=== PATIENT | male | born 1955 | race Two or more races ===

== ENCOUNTER 2022-04-14 19:06 | Inpatient (IN) | payer MEDICAID ==
[~2022-04-14] VITALS: Ht 157.5 cm; Wt 81.6 kg
[2022-04-14] MEDS ORDERED: MECLIZINE HCL 25 MG TABLET PO ONE (19:30)
[2022-04-14] MEDS ORDERED: IV NS 0.9% 1,000 ML BAG IV ONE ×2 (19:30→20:00)
[2022-04-14] MEDS ORDERED: ONDANSETRON HCL/PF 4 MG/2 ML VIAL IVP ONE (19:30)
--- NOTE | 2022-04-14 19:30 | NUR ---
BIB FAMILY C/O NAUSEA AND VOMITING XDAYS, DIZZINESS, DRY MOUTH, AND PAIN BILATERAL HAND, WITH HI BP AND HEART RATE. KNOWN HX OF HTN. PATIENT IS AAOX4, ITALIAN SPEAKING, FEBRILE. PLACED COMFORTABLY IN BED. VITALS CHECKED.
[2022-04-14] MEDS ORDERED: ONDANSETRON HCL/PF 4 MG/2 ML VIAL ONE (19:42)
[2022-04-14] MEDS ORDERED: MECLIZINE HCL 25 MG TABLET ONE (19:42)
--- NOTE | 2022-04-14 19:55 | NUR ---
BROUGHT TO CT DEPT
--- NOTE | 2022-04-14 19:57 | NUR ---
COVID SWAB, INFLUENZA SWAB AND SWAB FOR RSV DONE AND SENT TO LAB
--- NOTE | 2022-04-14 19:57 | NUR ---
IV CANNULA RIGHT AC G18. BLOOD DRAWN AND SENT TO LAB
[2022-04-14] MEDS ORDERED: ACETAMINOPHEN ES 500 MG TABLET PO ONE (20:00)
--- NOTE | 2022-04-14 20:00 | NUR ---
1L NS AND TYLENOL ES 1000MG PO HAS A DUPLICATE ORDER.
[2022-04-14 20:04] LABS: BASOPHILS % (AUTO) 0.3 % (0.0-2.0); HEMATOCRIT 45 % (39-51); HEMOGLOBIN 15.3 g/dL (13.5-17.5); LYMPHOCYTES % (AUTO) 6.1 % (20.0-44.0); MEAN CORPUSCULAR HGB CONC 34 g/dl (31.0-36.0); MEAN CORPUSCULAR VOLUME 101 fL (80-96); MONOCYTES # (AUTO) 0.6 K/uL (0.1-1.30); MONOCYTES % (AUTO) 3.6 % (2.0-12.0); NEUTROPHILS # (AUTO) 14.5 K/uL (1.8-8.9); PLATELET COUNT (AUTO) 197 K/uL (150-450); RED BLOOD CELL COUNT(AUTO) 4.39 MIL/uL (4.5-6.0); WHITE BLOOD COUNT (AUTO) 16.1 K/uL (4.3-11.0)
[2022-04-14 20:16] LABS: CALCIUM, SERUM 8.9 mg/dL (8.5-10.1); CARBON DIOXIDE 25 mmol/L (21-32); CHLORIDE 93 mmol/L (98-107); CREATININE 1.6 mg/dL (0.6-1.3); GLUCOSE 279 mg/dL (74-106); SODIUM SERUM 129 mmol/L (136-145); UREA NITROGEN, BLOOD 18 mg/dL (7-18)
[2022-04-14 20:22] LABS: ALANINE AMINOTRANSFERASE 74 U/L (12-78); ALBUMIN 3.3 g/dL (3.4-5.0); ALKALINE PHOSPHATASE 171 U/L (46-116); ASPARTATE AMINOTRANSFERASE 80 U/L (15-37); BILIRUBIN,DIRECT 1.2 mg/dL (0.0-0.2); BILIRUBIN,TOTAL 2.5 mg/dL (0.2-1.0); TOTAL PROTEIN, SERUM 8.5 g/dL (6.4-8.2)
--- NOTE | 2022-04-14 21:37 | NUR ---
[facility] PAGED
--- NOTE | 2022-04-14 21:42 | NUR ---
[place] glass in [facility] - 04/14/22 at 2146 by GOOD TRANSFERRED PT TO ROOM VIA ACLS.
--- NOTE | 2022-04-14 22:17 | NUR ---
PATIENT WENT OUT OF BED. HE IS A BIT WOBBLY. ASSISTED BACK TO ROOM AND BED.
--- NOTE | 2022-04-14 22:20 | NUR ---
EZIO [phone]. EMERGENCY CONTACT.
[2022-04-14] MEDS: POTASSIUM CL. PREMIX PERIPHER. 50 ML IV SCH ×2 (22:49→23:50)
--- NOTE | 2022-04-14 22:49 | NUR ---
1ST BAG OF KCL 10MEQ/BAG STARTED
--- NOTE | 2022-04-14 23:20 | NUR ---
PATIENT IS AGITATED. TRYING TO GET OUT OF BED. HE WAS COMPLAINING OF PAIN ON HIS IV SITE
[2022-04-14] MEDS ORDERED: POTASSIUM CL. PREMIX PERIPHER. 50 ML ONE (23:51)
--- NOTE | 2022-04-14 23:59 | NUR ---
2/4 KCL 10MG/ 50ML RUNNING LAC 18G
[2022-04-15] VITALS (39 sets, daily range): BP systolic 58–216; BP diastolic 35–109
[2022-04-15] MEDS ORDERED: ONDANSETRON HCL/PF 4 MG/2 ML VIAL IVP PRN (00:30)
--- NOTE | 2022-04-15 00:34 | NUR ---
REPORT GIVEN TO VALE BOBBY
--- NOTE | 2022-04-15 00:47 | NUR ---
URINE SPECIMEN SENT TO LAB
[2022-04-15] MEDS ORDERED: POTASSIUM CL. PREMIX PERIPHER. 50 ML ONE (01:01)
[2022-04-15] MEDS: POTASSIUM CL. PREMIX PERIPHER. 50 ML IV SCH ×14 (01:03→19:46)
--- NOTE | 2022-04-15 01:04 | NUR ---
3RD BAG OF KCL STARTED
--- NOTE | 2022-04-15 01:20 | NUR ---
TRANSFERRED TO ROOM
[2022-04-15 01:35] LABS: BILIRUBIN,URINE SMALL (NEGATIVE); COLOR,URINE YELLOW (YELLOW); LEUKOCYTE ESTERASE ,URINE NEGATIVE (NEGATIVE); NITRITE, URINE NEGATIVE (NEGATIVE); PH,URINE 6.5 (5.0-8.0); PROTEIN,URINE 30 mg/dl (NEGATIVE); UGLUCOSE 250 MG/DL mg/dL (NEGATIVE)
--- NOTE | 2022-04-15 01:40 | NUR ---
PATIENT MR. SONG FERGUSON BROUGHT FROM ER ON A GUEREY FROM THE ER DEPT CONFUSED RESTLESS TOSSING BACK AND FORTH ON THE BED NOTED QUARTER SIZE ABRASION LEFT KNEE AND A APPROX 3 INCH ABRASION SIDE LEFT LOWER THIGH PATIENT NOT ALERT TO NURSES AT HIS BEDSIDE NO EYE CONTACT PUPILS REACT TO LIGHT PUPIL SIZE 4 SKIN HOT TO TOUCH TEMP 102.6 IN ER I WAS TOLD THAT TYLENOL 1000MG WAS GIVEN PO SKIN BLOTCH HIS PANT SHORT ARE WET D/T INCONTINENCE. REMOVED AND PLACED IN A BAG WITH HIS SHOES. ON THE BELONGINGS LIST STATES PHONE (NO PHONE WITH THE PATIENT) i COMMENTED TO THE NURSE "I WAS TOLD HE WAS ALERT AND ORIENTATED x4, THIS IS A CHANGE IN HIS MENTAL STATUS, DOES THE DOCTOR KNOW" RPLIED THE DOCTOR KNOW IT'S D/T HIS FEVER. BUFFING LINE SET UP WORKER ON THE FLOOR ...I TOLD HER THIS PATIENT NEED TO GO TO ICU AND HE NEEDS AN ANTIBIOTIC SOMETHING MORE IS GOING ON WITH HIM, CHARGE NURSE WAS ALSO TOLD WHAT I SAW WITH THIS PATIENT AND CAME TO THE ROOM. HE WAS RESTLESS TOSSING BACK AND FORTH LIPS TOGETHER AND PUFFING BREATHING B/P216/109 RIGHT ARM HR 170 ON THE WILDLIFE ECOLOGIST AND SUSTAINING ST TEMP 102.6 STARTED A G20 IV IN HIS LEFT WRIST D/T HE WOULD NOT KEEP HIS LEFT ARM STRAIGHT AND HE WAS RECEIVING IV K+ CHARGE NURSE WAS PLACING A CALL TO THE MD REGARDING HIS 316/109 B/P AND HR 170 AT 01:52 CALLED FOR ASSIST TO CALL RAPID RESPONSE PATIENT HAVING A SEIZURE (LASTED LESS THAN A MINUTE) SUCTION PLACED IN THE ROOM 01:55 SATS 99% DURING SEIZURE HIS SATS 87% 02:02 HYDRALAZINE IVP SLOWLY GIVEN ORDERED HR SUSTAINED 170 B/P 172/87 MENTAL STATUS CONFUSED RESTLESS TOSSING BACK AND FORTH RAPID RESPONSE TEAM AT THE BEDSIDE CHARGE NURSE AND THE BUFFING LINE SET UP WORKER. DECISION TO TRANSFER TO ICU VIA BED 02:20 I CALLED THE AT HOME EZIO [phone] AND EXPLAINED TO HER THAT HER HAD A SEIZURE AND WAS GOING TO NEED A CT OF THE HEAD AND ABD WITH CONTRAST AND SHE AGREED TO THIS PROCEDURE ALSO I EXPLAINED TO HER THAT SHE WOULD NEED TO GIVE ME THE CONSENT TO HAVE THE MD DO A LUMBAR PUNCTURE AND SHE AGREED. GAVE HER THE ROOM NUMBER SHE STATED SHE WOULD BE HERE IN THE AM. TO ICU WITH MONITOR AND 02 3 LITERS RAILS UP 2 RNS WITH PATIENT. SHOES AND HIS PANT IN THE BAG ALSO WITH HIM NO PHONE AND REPOSTED THIS TO THE NURSE IN THE UNIT.
[2022-04-15] MEDS ORDERED: CEFTRIAXONE 2 G in IV D5W 100 ML IV SCH ×2 (02:00→11:00)
[2022-04-15] MEDS ORDERED: hydrALAZINE HCL IV 20 MG VIAL IV ONE (02:00)
[2022-04-15] MEDS ORDERED: PIPERACILLIN /TAZOBACTAM 3.375 G VIAL IV ONE (02:17)
[2022-04-15] MEDS ORDERED: CEFTRIAXONE 1 G VIAL ONE (02:27)
[2022-04-15] MEDS ORDERED: ZOSYN IVPB 3.375 G in IV D5W 50ml IV ONE (02:30)
[2022-04-15] MEDS: IV NS 0.9% 1,000 ML IV PRN ×2 (02:37→14:41)
[2022-04-15] MEDS ORDERED: VANCOMYCIN 1 GM in IV D5W 250ml IV ONE (03:00)
[2022-04-15] MEDS ORDERED: IV NS 0.9% 1,000 ML IV STA (03:01)
[2022-04-15] MEDS: ENOXAPARIN SODIUM 40 MG/0.4 ML DISP.SYRIN SQ SCH ×2 (03:05→22:19)
[2022-04-15] MEDS: ACETAMINOPHEN 650 MG/SUPP.RECT RC PRN ×2 (03:11→08:10)
[2022-04-15] MEDS ORDERED: VANCOMYCIN 1 GM VIAL ONE (04:17)
[2022-04-15 04:58] LABS: BASOPHILS % (AUTO) 0.2 % (0.0-2.0); HEMATOCRIT 42 % (39-51); HEMOGLOBIN 14.3 g/dL (13.5-17.5); LYMPHOCYTES # (AUTO) 1.9 K/uL (0.8-4.8); LYMPHOCYTES % (AUTO) 9.5 % (20.0-44.0); MEAN CORPUSCULAR HGB CONC 34 g/dl (31.0-36.0); MEAN CORPUSCULAR VOLUME 103 fL (80-96); MONOCYTES # (AUTO) 0.9 K/uL (0.1-1.30); MONOCYTES % (AUTO) 4.3 % (2.0-12.0); NEUTROPHILS # (AUTO) 17.2 K/uL (1.8-8.9); PLATELET COUNT (AUTO) 176 K/uL (150-450); RED BLOOD CELL COUNT(AUTO) 4.08 MIL/uL (4.5-6.0)
[2022-04-15 05:35] LABS: CALCIUM, SERUM 8.3 mg/dL (8.5-10.1); CREATININE 1.7 mg/dL (0.6-1.3); MAGNESIUM 2.4 mg/dL (1.8-2.4); PHOSPHORUS 1.3 mg/dL (2.5-4.9)
[2022-04-15 05:38] LABS: BILIRUBIN,TOTAL 3.2 mg/dL (0.2-1.0); TOTAL PROTEIN, SERUM 7.9 g/dL (6.4-8.2)
[2022-04-15 05:53] LABS: POTASSIUM 2.3 mmol/L (3.5-5.1)
--- NOTE | 2022-04-15 05:54 | NUR ---
horticultural agent. received the pt from med /surg s/p CHILD PROTECTION SPECIALIST. RN FOUND SEIZURE. TRANSFER THE PT TO ICU. RECEIVING TIME TEMPERATURE 105. LT KNEE LACERATION. (LOOKS PT FALL) UNKNOWN. HISTORY. PT IS CONFUSED. DOES NOT FOLLOW COMMANDS. NONVERBAL. BASE LINE UNKNOWN. LOVENOX CATHELAN ORDERED. I STATED LOOKS PT FALL. PER SUNADY LOVENOX S/C GIVEN. CLARIFIED THE ORDER, THEN GIVEN. PT IS PULLING LINES. FARHAD SOFT WRIST RESTRAINT INITIATED. FC INSERTED WITH OUT DIFFICULT. CONCENTRATED URINE DRAINING. HEART RATE WAS 170. IL NS BOLUS GIVEN. COOLING MEASURE PLACED, WILL CONTINUE TO MONITOR VITALS.
--- NOTE | 2022-04-15 07:00 | NUR ---
RN NOTES RECEIVED PT ON BED, RESTLESS , CONFUSED , DOES NOT FOLLOW COMMAND , TRYING TO GET OUT OF THE BED, ANALIA RISK FOR FALL, FARHAD. WRIST PROTECTIVE DEVICE ON FOR PT SAFETY, ON TELE ST HR IN 140'S, ON 4 LO2 N/C , O2 SAT WNL, MONTIEL DRINING TO GRAVITY WITH IRIS COLOR URINE, IV SITE CDI, NS AT T100CC/HR RUNNING , SR UP x3, CALL LIGHT WITHIN EASY REACH, BED LOCKED AND IN LOWEST POSITION, CONTINUE TO MONITOR .
--- NOTE | 2022-04-15 07:48 | NUR ---
WOUND CARE CONSULT: PT SEEN FOR LEFT KNEE AND THIGH DRY ABRASIONS, PRESENT ON ADMISSION. NO ERYTHEMA OR DRAINAGE NOTED. OBSERVE AREAS. PT IS EXTREMELY RESTLESS IN BED. MONTIEL CATH NOTED. WILL SEE PRN.
[2022-04-15] MEDS: PANTOPRAZOLE 40 MG VIAL IV SCH (08:13)
[2022-04-15] MEDS ORDERED: POTASSIUM CL. PREMIX PERIPHER. 50 ML IV SCH (08:30)
[2022-04-15 08:47] LABS: BACTERIA,URINE None seen /HPF (None Seen); RBC,URINE 0-2 /HPF (0-2); SQUAMOUS EPITHELIAL CELL,UR Rare /HPF (None Seen); WBC,URINE 0-2 /HPF (0-3)
[2022-04-15] MEDS ORDERED: PIPERACILLIN /TAZOBACTAM 3.375 G in IV D5W 100 ML IV SCH (10:00)
[2022-04-15 11:17] LABS: BAND % (MANUAL) 16 % (0.0-5.0); LYMPHOCYTES % (MANUAL) 10 % (16-48); MONOCYTES % (MANUAL) 2 % (0-11.0); NEUTROPHILS % (MANUAL) 72 (42-76)
[2022-04-15] MEDS ORDERED: Sodium Phosphate 30 MMOL in IV NS 0.9% 250 ML IV SCH (12:00)
--- NOTE | 2022-04-15 12:00 | NUR ---
RN NOTES T=102.1 PT ON COOLING BLANKET , VERY RESTLESS, TACHYCARDIC, SUPPORTIVE AT THE BEDSIDE, CONTINUE TO MONITOR .
[2022-04-15] MEDS: CEFTRIAXONE 2 G in IV D5W 100 ML IV SCH (12:32)
[2022-04-15] MEDS ORDERED: AMPICILLIN 1 GM VIAL IV SCH (13:00)
[2022-04-15] MEDS: METRONIDAZOLE 500MG/ NS 100ML 500 MG in PREMIX 1 EA IV SCH ×2 (13:11→22:17)
[2022-04-15] MEDS: ACETAMINOPHEN 325 MG TABLET PO PRN ×2 (14:08→22:30)
[2022-04-15] MEDS: AMPICILLIN SODIUM 2 GM in IV NS 0.9% 100 ML IV SCH ×3 (14:11→22:18)
--- NOTE | 2022-04-15 16:00 | NUR ---
RN NOTES PT IS MORE COHERENT , RESPONDS TO VERBAL STIMULI, SLIGHTLY RESTLESS , STILL ON COOLING BLANKET, AT THE BEDSIDE, CONTINUE TO MONITOR
[2022-04-15 16:51] LABS: AMYLASE 50 U/L (25-115)
--- NOTE | 2022-04-15 19:00 | NUR ---
RN NOTES PT IS SPEECH IS CLEAR, RESPONDS TO VERBAL STIMULI, ON 4L O2 N/C , T=100.5 , TYLENOL GIVEN NEEDED . COOLING BLANKET ON , HR IN 130'S, IVF AT 125CC/HR RUNNING, SR UP x3, CALL LIGHT WITHIN EASY REACH, WILL ENDOSE TO GRADUATE STUDENT NURSE FOR CONTINUITY OF CARE .
[2022-04-15 20:54] LABS: LIPASE 75 U/L (73-393)
[2022-04-16] VITALS (44 sets, daily range): BP systolic 109–168; BP diastolic 53–110
[2022-04-16] MEDS ORDERED: VANCOMYCIN 1.25 GM in IV D5W 250 ML IV SCH ×2
[2022-04-16] MEDS: CEFTRIAXONE 2 G in IV D5W 100 ML IV SCH ×2 (00:48→14:27)
[2022-04-16] MEDS: AMPICILLIN SODIUM 2 GM in IV NS 0.9% 100 ML IV SCH ×6 (01:00→20:24)
[2022-04-16 05:15] LABS: BASOPHILS % (AUTO) 0.1 % (0.0-2.0); EOSINOPHILS % (AUTO) 0.1 % (0.0-6.0); HEMATOCRIT 38 % (39-51); HEMOGLOBIN 12.8 g/dL (13.5-17.5); LYMPHOCYTES # (AUTO) 0.9 K/uL (0.8-4.8); LYMPHOCYTES % (AUTO) 4.4 % (20.0-44.0); MEAN CORPUSCULAR HGB CONC 34 g/dl (31.0-36.0); MEAN CORPUSCULAR VOLUME 103 fL (80-96); MONOCYTES % (AUTO) 4.6 % (2.0-12.0); NEUTROPHILS # (AUTO) 19.4 K/uL (1.8-8.9); NEUTROPHILS % (AUTO) 90.8 % (43.0-81.0); PLATELET COUNT (AUTO) 154 K/uL (150-450); RED BLOOD CELL COUNT(AUTO) 3.68 MIL/uL (4.5-6.0); WHITE BLOOD COUNT (AUTO) 21.3 K/uL (4.3-11.0)
[2022-04-16] MEDS: METRONIDAZOLE 500MG/ NS 100ML 500 MG in PREMIX 1 EA IV SCH ×3 (05:20→20:38)
[2022-04-16] MEDS: IV NS 0.9% 1,000 ML IV PRN ×2 (05:21→18:18)
[2022-04-16 05:47] LABS: CALCIUM, SERUM 7.8 mg/dL (8.5-10.1); CREATININE 1.1 mg/dL (0.6-1.3); MAGNESIUM 2.5 mg/dL (1.8-2.4); PHOSPHORUS 2.1 mg/dL (2.5-4.9); POTASSIUM 3.3 mmol/L (3.5-5.1)
--- NOTE | 2022-04-16 07:30 | NUR ---
OPENING NOTE: REPORT RECEIVED FROM FITNESS MANAGER RN. ORDERS AND LABS REVIEWED DURING REPORT. PT HAS BEDSIDE SITTER D/T PATIENT BEING CONFUSED AND PULLING OUT IV'S AND TRYING TO GET OUT OF BED. PER REPORT PATIENT HAS BEEN CONFUSED, UNCOOPERATIVE AND RESTLESS ALL NIGHT. 1BM NOTED OVERNIGHT PER REPORT. PT IS IN CONTACT ISOLATION FOR R/O MENINGITIS, PLAN IS FOR LUMBAR PUNCTURE TODAY. PT CHECKED ON HOURLY AND PRN BY NURSING STAFF.
[2022-04-16] MEDS: PANTOPRAZOLE 40 MG VIAL IV SCH (08:57)
[2022-04-16] MEDS: POTASSIUM CL. PREMIX PERIPHER. 50 ML IV SCH ×2 (10:48→11:57)
[2022-04-16] MEDS: VANCOMYCIN 1 GM in IV D5W 250 ML IV SCH (11:58)
[2022-04-16] MEDS ORDERED: Sodium Phosphate 30 MMOL in IV NS 0.9% 250 ML IV SCH (12:00)
[2022-04-16] MEDS: IV NS 0.9% 250 ML IV PRN (12:00)
[2022-04-16 14:14] LABS: BAND % (MANUAL) 20 % (0.0-5.0); LYMPHOCYTES % (MANUAL) 7 % (16-48); MONOCYTES % (MANUAL) 4 % (0-11.0); NEUTROPHILS % (MANUAL) 69 (42-76)
[2022-04-16] MEDS: ENOXAPARIN SODIUM 40 MG/0.4 ML DISP.SYRIN SQ SCH (16:23)
--- NOTE | 2022-04-16 16:25 | NUR ---
FF UP RADIOLOGY REGARDING LP- SPOKE TO DR. GIRALDO. PER MD, NEEDS COAGS DONE, POSS. UNDER MODERATE SEDATION WITH AN CUTTING MACHINE OPERATOR. KEEP PATIENT NPO. WILL RESKED FOR TOMORROW.
--- NOTE | 2022-04-16 18:40 | NUR ---
END OF SHIFT NOTE: PICC LINE WAS INSERTED THIS SHIFT. MULTIPLE IV ABX, POTASSIUM IVPB AND SODIUM PHOSPHATE GIVEN THIS SHIFT PER MD ORDERS. 1200ML OUT OF MONTIEL CATHETER THIS SHIFT. PT IS VERY CONFUSED AND APPEARS TO BE HALLUCINATING. SITTER AT BEDSIDE, PATIENT FREQUENTLY ATTEMPTS TO PULL OUT IVS AND EQUIPMENT AND GET OUT OF BED. PT REQUIRES FREQUENT REORIENTATION AND REMINDERS NOT TO PULL AT THINGS AND GET OUT OF BED.
--- NOTE | 2022-04-16 20:00 | NUR ---
Received patient from day shift confused and restless with 1:1 sitter at bedside.Trying to pull IV access out and pulled out cardiac monitoring wires BP and pulse ox.Bilateral soft wrist restraints reapplied.DX:SEPSIS of unknown origin,DIRK and suspected Miningitis.Droplet isolation precaution implemented.Afebrile,ST 130's.Respiration even and unlabored with O2 4LNC saturation 95%.FC to gravity.Turned and repositioned.Call light at bedside.
[2022-04-17] VITALS (27 sets, daily range): BP systolic 137–172; BP diastolic 85–115
[2022-04-17] MEDS: VANCOMYCIN 1 GM in IV D5W 250 ML IV SCH ×2
[2022-04-17] MEDS: AMPICILLIN SODIUM 2 GM in IV NS 0.9% 100 ML IV SCH ×6 (01:12→21:00)
[2022-04-17] MEDS: CEFTRIAXONE 2 G in IV D5W 100 ML IV SCH ×2 (01:26→14:39)
[2022-04-17] MEDS: IV NS 0.9% 1,000 ML IV PRN ×2 (01:29→10:04)
[2022-04-17] MEDS: METRONIDAZOLE 500MG/ NS 100ML 500 MG in PREMIX 1 EA IV SCH ×3 (04:48→21:01)
[2022-04-17 05:45] LABS: CALCIUM, SERUM 7.9 mg/dL (8.5-10.1); CREATININE 0.9 mg/dL (0.6-1.3); PHOSPHORUS 1.6 mg/dL (2.5-4.9)
[2022-04-17] MEDS: hydrALAZINE HCL IV 20 MG VIAL IV PRN (05:45)
[2022-04-17 06:12] LABS: POTASSIUM 2.5 mmol/L (3.5-5.1)
[2022-04-17] MEDS: IV NS 0.9% 250 ML IV PRN ×2 (06:42→17:28)
--- NOTE | 2022-04-17 07:13 | NUR ---
Patient remains confused and restless.ST 120's-130's.Maintain 1:1 sitter at bedside.With multiple antibiotics administered as prescribed.With elevated BP PRN Hydralazine given. Voided 2100 during the shift.Patient am labs resulted K+ 2.5 to give KCL 60 meq IV.Plan for LP today.Report given to day shift for JOHN.
[2022-04-17 08:30] LABS: BASOPHILS % (AUTO) 0.2 % (0.0-2.0); EOSINOPHILS % (AUTO) 0.1 % (0.0-6.0); HEMATOCRIT 35 % (39-51); HEMOGLOBIN 11.5 g/dL (13.5-17.5); LYMPHOCYTES # (AUTO) 1.2 K/uL (0.8-4.8); LYMPHOCYTES % (AUTO) 7.9 % (20.0-44.0); MEAN CORPUSCULAR HGB CONC 33 g/dl (31.0-36.0); MEAN CORPUSCULAR VOLUME 105 fL (80-96); MONOCYTES # (AUTO) 0.8 K/uL (0.1-1.30); MONOCYTES % (AUTO) 5.5 % (2.0-12.0); NEUTROPHILS # (AUTO) 13.2 K/uL (1.8-8.9); NEUTROPHILS % (AUTO) 86.3 % (43.0-81.0); PLATELET COUNT (AUTO) 148 K/uL (150-450); RED BLOOD CELL COUNT(AUTO) 3.32 MIL/uL (4.5-6.0); WHITE BLOOD COUNT (AUTO) 15.3 K/uL (4.3-11.0)
[2022-04-17] MEDS: PANTOPRAZOLE 40 MG VIAL IV SCH (08:42)
[2022-04-17] MEDS: POTASSIUM CL. PREMIX PERIPHER. 50 ML IV SCH ×6 (08:42→17:24)
[2022-04-17] MEDS: POTASSIUM PHOSPHATE MM 7.5 MMOL in IV NS 0.9% 100 ML IV SCH ×2 (09:54→13:23)
[2022-04-17] MEDS: VANCOMYCIN 1.25 GM in IV D5W 250 ML IV SCH (11:04)
[2022-04-17 12:18] LABS: EOSINOPHILS % (MANUAL) 1 % (0-4); LYMPHOCYTES % (MANUAL) 7 % (16-48); MONOCYTES % (MANUAL) 1 % (0-11.0); NEUTROPHILS % (MANUAL) 91 (42-76)
[2022-04-17] MEDS ORDERED: LORAZEPAM INJ 2 MG/ML VIAL IV PRN (12:30)
--- NOTE | 2022-04-17 17:30 | NUR ---
PT WENT TO RADIOLOGY AT 1546 FOR LUMBAR PUNCTURE UNDER FLOUROSCOPY. RN AND 1:1 SITTER ACCOMPANIED PATIENT TO RADIOLOGY AND STAYED THERE DURING PROCEDURE. IV'S STOPPED DURING THIS TIME. PT RETURNED TO ROOM AT 1700, PATIENT SETTLED BACK IN ROOM, ALL LINENS CHANGED. SPECIMEN VIALS BROUGHT TO LAB BY RN, LOG BOOK DOCUMENTED IN LAB.
--- NOTE | 2022-04-17 19:26 | NUR ---
END OF SHIFT NOTE: 1:1 SITTER THIS WHOLE SHIFT. PT APPEARS TO BE HALLUCINATING, CONFUSED, ATTEMPTS TO PULL OUT OV/PICC LINE AND ATTEMPTS TO GET OUT OF BED. PT RECEIVED 60MEQ OF IV POTASSIUM AND NA PHOSPHATE PER MD ORDERS. LUMBAR PUNCTURE DONE PER MD ORDERS.
--- NOTE | 2022-04-17 19:30 | NUR ---
TRACK WORKER PER LAB CSF SPECIMEN WAS CLOTTED AND TESTING COULD NOT BE COMPLETED
[2022-04-17] MEDS: ENOXAPARIN SODIUM 40 MG/0.4 ML DISP.SYRIN SQ SCH (22:48)
[2022-04-18] VITALS (15 sets, daily range): BP systolic 133–177; BP diastolic 77–102
[2022-04-18] MEDS: VANCOMYCIN 1.25 GM in IV D5W 250 ML IV SCH ×3 (00:01→23:14)
[2022-04-18] MEDS: AMPICILLIN SODIUM 2 GM in IV NS 0.9% 100 ML IV SCH ×6 (00:01→20:17)
[2022-04-18] MEDS: IV NS 0.9% 1,000 ML IV PRN ×2 (00:15→08:44)
[2022-04-18] MEDS: CEFTRIAXONE 2 G in IV D5W 100 ML IV SCH ×2 (01:30→14:15)
[2022-04-18] MEDS: hydrALAZINE HCL IV 20 MG VIAL IV PRN ×2 (03:26→21:49)
[2022-04-18] MEDS: METRONIDAZOLE 500MG/ NS 100ML 500 MG in PREMIX 1 EA IV SCH (04:00)
[2022-04-18 05:21] LABS: CALCIUM, SERUM 8.2 mg/dL (8.5-10.1); CREATININE 0.8 mg/dL (0.6-1.3)
[2022-04-18 06:29] LABS: POTASSIUM 2.4 mmol/L (3.5-5.1)
[2022-04-18 07:21] LABS: BASOPHILS # (AUTO) 0.1 K/uL (0.0-0.2); BASOPHILS % (AUTO) 0.5 % (0.0-2.0); EOSINOPHILS % (AUTO) 1.2 % (0.0-6.0); HEMATOCRIT 35 % (39-51); HEMOGLOBIN 11.7 g/dL (13.5-17.5); LYMPHOCYTES # (AUTO) 1.4 K/uL (0.8-4.8); LYMPHOCYTES % (AUTO) 13.7 % (20.0-44.0); MEAN CORPUSCULAR HGB CONC 34 g/dl (31.0-36.0); MEAN CORPUSCULAR VOLUME 103 fL (80-96); MONOCYTES # (AUTO) 1.1 K/uL (0.1-1.30); MONOCYTES % (AUTO) 11.3 % (2.0-12.0); NEUTROPHILS # (AUTO) 7.4 K/uL (1.8-8.9); NEUTROPHILS % (AUTO) 73.3 % (43.0-81.0); PLATELET COUNT (AUTO) 171 K/uL (150-450); RED BLOOD CELL COUNT(AUTO) 3.36 MIL/uL (4.5-6.0); WHITE BLOOD COUNT (AUTO) 10.1 K/uL (4.3-11.0)
[2022-04-18] MEDS: PANTOPRAZOLE 40 MG VIAL IV SCH (08:39)
[2022-04-18] MEDS: POTASSIUM CL. PREMIX PERIPHER. 50 ML IV SCH ×8 (08:55→16:48)
--- NOTE | 2022-04-18 11:00 | NUR ---
PURCHASING ANALYST ADMITTING NOTES: RECEIVED PT FROM ICU, REPORT GIVEN BY JESSICA. PATIENT WAS TRANSFERRED VIA BED,WITH RAQUEL BELTRAN 1:1 SITTER AND RN JESSICA. PATIENT AWAKE, ALERT AND ORIENTED X 4 LAO SPEAKER BUT ABLE TO UNDERSTAND/COMMUNICATE IN CITIZEN OF [place]. NO SOB OR CARDIAC DISTRESS NOTED ON O2 INHALATION @4LPM VIA NASAL CANNULA. ON SPECIAL NEEDS CHILD CAREGIVER WITH CURRENT READING OF SINUS TACHY 100 BPM. IV ACCESS ON CATA PICC LINE, L WRIST G20 PATENT AND INTACT AND FLUSHING WELL. IV FLUID NS @125 ML/HR, ONGOING KCL IV. BODY ASSESSMENT DONE. SKIN ISSUES NOTED, PHOTOS TAKEN AND FILED TO PT'S CHART. BELONGINGS NOTED (CLOTHES ONLY NO CELLPHONE). ORIENTED TO UNIT, STAFFS. PT CURRENTLY ON NPO EXCEPT MEDS. SAFETY MEASURES INITIATED: BED LOCKED AND IN LOWEST POSITION , SIDE RAILS UP X 3. CALL LIGHT AND TABLE IN EASY REACH FOR HELP. WILL MONITOR PT ACCORDINGLY.
--- NOTE | 2022-04-18 11:14 | NUR ---
PATIENT TRANSFERRED TO [facility] FOR CONTINUATION OF CARE.
--- NOTE | 2022-04-18 13:48 | NUR ---
RN NOTES: FOLLOW UP MRI/RADIOLOGY DEPT FOR SCHEDULED MRI OF THE BRAIN WITHOUT CONTRAST AND LUMBAR PUNCTURE. PER RADIOLOGY ([facility]EN) THEYRE NOT ABLE TO PERFORM/DO ITT, RADIOLOGIST IS NOT AVAILABLE TODAY. PER [facility] HOLD LOVENOX FOR 12 HRS, INFORMED PHARMACY DEPT ([facility]). IS IN PT ROOM AND INFORMED RN THAT SHE WANTED TO TALK TO DOCTOR BEFORE DOING THE PROCEDURE, INFORMED CHARGE NURSE JESSICA
--- NOTE | 2022-04-18 14:49 | NUR ---
RN NOTES: EZIO REFUSING LUMBAR PUNCTURE, INFORMED MS JESSICA.
[2022-04-18] MEDS: ENOXAPARIN SODIUM 40 MG/0.4 ML DISP.SYRIN SQ SCH (17:03)
--- NOTE | 2022-04-18 18:40 | NUR ---
SALON MANAGER CLOSING NOTES: PATIENT IN BED, DOZING OFF,EASILY AROUSED WITH STIMULI. PT ALERT AND ORIENTED X 3. PATIENT CALM, NO SOB OR CARDIAC DISTRESS NOTED. ON CONCEPT ARTIST: SINUS TACHY @104 BPM, IV ACCESS ON CATA PICC LINE WITH IVF RUNNING NS 1L @125 ML/HR, LEFT WRIST GAUGE 20, PATENT INTACT AND SALINE LOCKED. SAFETY MEASURES MAINTAINED:BED LOCKED AND IN LOWEST POSITION, SIDE RAILS UP X 3. CALL LIGHT IN EASY REACH FOR HELP. ENDORSED TO NATIONAL STORMWATER LEADER NURSE FOR CONTINUITY OF CARE.
--- NOTE | 2022-04-18 19:55 | NUR ---
MERCHANDISING LEAD OPENING NOTES; RECEIVED PATIENT IN BED AWAKED ALERT AND ORIENTED X 3. AT THE BEDSIDE,ON 4L O2 VIA NC LUCERO WELL,NO SOB/DISTRESS NOTED. IV ACCESS ON CATA PICC LINE WITH IVF RUNNING NS 1L @125 ML/HR, LEFT WRIST GAUGE 20, PATENT INTACT AND SALINE LOCKED. SAFETY MEASURES MAINTAINED:BED LOCKED AND IN LOWEST POSITION, SIDE RAILS UP X 3. CALL LIGHT IN EASY REACH FOR HELP.WILL CONTINUE TO MONITOR.
--- NOTE | 2022-04-18 21:54 | NUR ---
RN NOTES; APRESOLINE 10MG/0.5ML IV WAS GIVEN BP177/101,HR114.NO SIGN A/R NOTED.
[2022-04-19] MEDS: AMPICILLIN SODIUM 2 GM in IV NS 0.9% 100 ML IV SCH ×6 (01:19→21:30)
[2022-04-19] MEDS: CEFTRIAXONE 2 G in IV D5W 100 ML IV SCH ×2 (02:43→14:12)
[2022-04-19 04:00] VITALS: BP_SYST 156; BP_SYST 157; BP_DIAS 84; BP_DIAS 95
[2022-04-19] MEDS: IV NS 0.9% 1,000 ML IV PRN ×2 (04:16→14:54)
--- NOTE | 2022-04-19 06:20 | NUR ---
WHARF ATTENDANT CLOSING NOTES; PATIENT IN BED AWAKED ALERT AND ORIENTED X 3,ON 4L O2 VIA NC LUCERO WELL,NO SOB/DISTRESS NOTED.NO SIGN OF PAIN/DISCOMFORT DURING SHIFT,DUE MEDS GIVEN ORDER,ALL NEEDS ATTENDED, IV ACCESS ON CATA PICC LINE WITH IVF RUNNING NS 1L @125 ML/HR, LEFT WRIST GAUGE 20, PATENT INTACT AND SALINE LOCKED.F/C DRAINNIG WELL OUTPUT 1100ML, SAFETY MEASURES MAINTAINED:BED LOCKED AND IN LOWEST POSITION, SIDE RAILS UP X 3. CALL LIGHT IN EASY REACH FOR HELP.WILL ENDORSED TO NEXT SHIFT.
--- NOTE | 2022-04-19 07:21 | NUR ---
DIE HOLDER OPENING NOTE RECEIVED PATIENT IN BED AWAKE, PATIENT ALERT AND ORIENTED X 3. PATIENT ON OXYGEN AT 4LPM VIA NASAL CANULA WITH EQUAL AND UNLABORED BREATHING. NO SIGNS AND SYMPTOMS OF RESPIRATORY DISTRESS NOTED. WITH IV ACCESS ON THE LEFT WRIST ON SALINE LOCK, PATENT AND INTACT. WITH CATA PICC LINE WITH NS RUNNING AT 125 ML/HR. ON MODERATE TO HIGH BACK REST. COMFORT MEASURES PROVIDE. SAFETY MEASURES MAINTAINED:BED LOCKED AND IN LOWEST POSITION, SIDE RAILS UP X 3. CALL LIGHT IN EASY REACH AT ALL TIMES.
[2022-04-19 07:22] LABS: CALCIUM, SERUM 8.1 mg/dL (8.5-10.1); CREATININE 0.7 mg/dL (0.6-1.3)
[2022-04-19 07:30] LABS: POTASSIUM 2.1 mmol/L (3.5-5.1)
--- NOTE | 2022-04-19 07:55 | NUR ---
BLENDER SNUFF NOTE LATEST SERUM POTASSIUM IS 2.1 RELAYED BY PagaTuAlquiler DOROTHEA. MD NOTIFIED, AWAITNG ORDERS. PATIENT MONITORED FOR S/S OF HYPOKALEMIA, NONE NOTED AT THIS TIME.
[2022-04-19 08:00] VITALS: BP 160/89
[2022-04-19] MEDS: PANTOPRAZOLE 40 MG VIAL IV SCH (08:33)
[2022-04-19] MEDS: POTASSIUM CL. PREMIX PERIPHER. 50 ML IV SCH ×8 (09:11→17:44)
[2022-04-19 12:00] VITALS: BP 167/96
--- NOTE | 2022-04-19 12:25 | NUR ---
HEAVY LIFT RIGGER NOTE PATIENT PICKED UP FOR MRI TRANSPORTED VIA GURNEY, IN STABLE CONDITION.
[2022-04-19] MEDS: VANCOMYCIN 1.25 GM in IV D5W 250 ML IV SCH (13:12)
--- NOTE | 2022-04-19 13:30 | NUR ---
PLASMA TABLE OPERATOR NOTE PATIENT BACK FROM MRI. TRANSFERRED TO BED AND COMFORT MEASURES PROVIDED. IN STABLE CONDITION.
--- NOTE | 2022-04-19 14:22 | NUR ---
SEASONAL CLERK NOTE PATIENT NOTED WITH SOME REDNESS ON AROUND THE MOUTH, WHEN FACE WAS WIPED, PATIENT HAD SOME SORES AROUND THE MOUTH AND LIPS. IT WOULD EASILY BLEED WHEN TOUCHED, INSTRUCTED NOT TO WIPE. MD NOTIFIED AND IT AUDITOR ORDERED. NO BLEEDING NOTED.
[2022-04-19] MEDS: hydrALAZINE HCL IV 20 MG VIAL IV PRN (16:03)
[2022-04-19 16:58] VITALS: BP 165/100
[2022-04-19] MEDS: ENOXAPARIN SODIUM 40 MG/0.4 ML DISP.SYRIN SQ SCH (17:47)
[2022-04-19 20:00] VITALS: BP 146/81
--- NOTE | 2022-04-19 22:54 | NUR ---
EGG GATHERER NOTE NOTED VANCO PEAK ORDER TODAY FOR 2300 BUT VANCOMYCIN IS DUE AT 0000H. CHARGE NURSE NOTIFIED. CHANGED ORDER TO VANCO TROUGH ORDERED.
[2022-04-20] VITALS: BP 154/92
[2022-04-20] MEDS: VANCOMYCIN 1.25 GM in IV D5W 250 ML IV SCH ×3 (00:21→23:48)
[2022-04-20] MEDS: AMPICILLIN SODIUM 2 GM in IV NS 0.9% 100 ML IV SCH ×3 (01:09→09:05)
--- NOTE | 2022-04-20 01:38 | NUR ---
CHAIR LIFT OPERATOR NOTE ENDORSED TO NURSE CUELLAR FOR CONTINUITY OF CARE.
[2022-04-20] MEDS: CEFTRIAXONE 2 G in IV D5W 100 ML IV SCH ×2 (02:22→15:04)
[2022-04-20] MEDS: IV NS 0.9% 1,000 ML IV PRN (02:23)
[2022-04-20 04:00] VITALS: BP 156/93
[2022-04-20] MEDS: hydrALAZINE HCL IV 20 MG VIAL IV PRN (04:50)
[2022-04-20 06:31] LABS: CALCIUM, SERUM 8.4 mg/dL (8.5-10.1); CREATININE 0.7 mg/dL (0.6-1.3)
[2022-04-20 06:38] LABS: POTASSIUM 2.4 mmol/L (3.5-5.1)
[2022-04-20 07:00] VITALS: BP 152/84
--- NOTE | 2022-04-20 07:38 | NUR ---
noc rn closing report given to VALE Murray for continuity of patient care.
--- NOTE | 2022-04-20 07:53 | NUR ---
RN OPENING NOTES PATIENT AWAKE IN BED RESTING, A/O X 3-4. NO S/S OF PAIN NOTED AT THIS TIME. ON 3L OXYGEN VIA NC, NO DISTRESS OR SHORTNESS OF BREATH NOTED. IV ACCESS CATA PICC-LINE, INTACT, PATENT, FLUSHING WELL. PATIENT WITH EXTERNAL SALESPERSON FLOWERS WITH CURRENT READING OF SR AND HR OF 94, NO CARDIAC DISTRESS NOTED AT THIS TIME. PATIENT HAVE A MONTIEL CATHETER IN PLACE AND DRAINING WELL. FALL AND SAFETY MEASURES IN PLACE, BED ALARM ON, BED IN LOW LOCK POSITION, CALL LIGHT AND TABLE WITHIN EASY REACH, SIDE RAILS UP X2. WILL CONTINUE TO MONITOR.
[2022-04-20] MEDS: PANTOPRAZOLE 40 MG VIAL IV SCH (09:05)
--- NOTE | 2022-04-20 10:48 | NUR ---
WOUND CARE CONSULT: RECEIVED CONSULT FOR MOUTH SORES. PT NOTED TO HAVE CRUSTED AREAS AROUND MOUTH AND UNDER NOSE, UNKNOWN ETIOLOGY. DEFER TO PMD.
[2022-04-20] MEDS: POTASSIUM CHLORIDE 10 MEQ/50 ML PREMIXED IVPB FOR PERIPHERAL LINE IV SCH ×8 (11:23→19:43)
[2022-04-20 12:06] LABS: *CRYPTOCOCCUS AG, CSF Negative (Negative)
[2022-04-20] MEDS: VALACYCLOVIR HCL 500 MG TABLET PO SCH ×3 (12:28→21:11)
[2022-04-20 14:05] LABS: BASOPHILS % (AUTO) 0.5 % (0.0-2.0); EOSINOPHILS % (AUTO) 1.7 % (0.0-6.0); HEMATOCRIT 34 % (39-51); HEMOGLOBIN 11.2 g/dL (13.5-17.5); LYMPHOCYTES # (AUTO) 1.5 K/uL (0.8-4.8); LYMPHOCYTES % (AUTO) 20.4 % (20.0-44.0); MEAN CORPUSCULAR HGB CONC 33 g/dl (31.0-36.0); MEAN CORPUSCULAR VOLUME 103 fL (80-96); MONOCYTES # (AUTO) 0.9 K/uL (0.1-1.30); NEUTROPHILS % (AUTO) 65.4 % (43.0-81.0); PLATELET COUNT (AUTO) 307 K/uL (150-450); RED BLOOD CELL COUNT(AUTO) 3.29 MIL/uL (4.5-6.0); WHITE BLOOD COUNT (AUTO) 7.6 K/uL (4.3-11.0)
[2022-04-20] MEDS ORDERED: LIDOCAINE 1%-EPI 1:100,000 20 ML VIAL TP ONE (14:30)
--- NOTE | 2022-04-20 14:30 | NUR ---
RN NOTE PATIENT HAD A LUMBAR PUNCTURE TODAY AT BED SIDE BY DR. JACOB SALGUERO. PATIENT TOLERATED PROCEDURE WELL. PATIENT DENIED ANY PAIN OR DISCOMFORT. PATIENT IS IN BED RESTING, COMFORTABLE, WILL CONTINUE TO MONITOR.
[2022-04-20 16:03] LABS: CSF GLUCOSE 71 mg/dL (40-70)
[2022-04-20 16:07] LABS: *HIV-1 RNA BY PCR <20 copies/mL (.)
[2022-04-20 16:13] LABS: CSF PROTEIN 121.32 mg/dL (15-45)
[2022-04-20] MEDS: Potassium Chloride 20 MEQ in IV NS 0.9% 1,000 ML IV SCH ×2 (16:59→23:48)
[2022-04-20] MEDS: ENOXAPARIN SODIUM 40 MG/0.4 ML DISP.SYRIN SQ SCH (17:12)
--- NOTE | 2022-04-20 17:37 | NUR ---
RN NOTE PATIENT MONTIEL CATHETER WAS REMOVED PER DOCTOR ORDER, ORDERED WAS EXPLAINED TO PATIENT, OUTPUT WAS 800ML, PATIENT TOLERATED WELL, PATIENT DENIED ANY PAIN OR DISCOMFORT. PATIENT RESTING IN BED COMFORTABLY. CHARGE NURSE AWARE. WILL CONTINUE TO MONITOR.
--- NOTE | 2022-04-20 18:46 | NUR ---
RN NOTE DOCTOR MOON WAS CALLED PER DR. JACOB SALGUERO REQUESTED TO INFORMED HER OF THE LUMBAR PUNCTURE RESULT ( GLUCOSE 71, CRYPTOCOCCUS-NEGATIVE AND CRITICAL LEVEL OF CSF TOTAL PROTEIN OF 121.32.) I WAS UNABLE TO TALK TO DOCTOR MOON, BUT TALKED TO DOCTOR RECESSING MACHINE OPERATOR. CHARGE NURSE AWARE.
[2022-04-20 18:52] LABS: BAND % (MANUAL) 9 % (0.0-5.0); BASOPHILS % (MANUAL) 0 % (0.0-2.0); EOSINOPHILS % (MANUAL) 1 % (0-4); LYMPHOCYTES % (MANUAL) 19 % (16-48); MONOCYTES % (MANUAL) 7 % (0-11.0); NEUTROPHILS % (MANUAL) 64 (42-76)
--- NOTE | 2022-04-20 19:07 | NUR ---
RN CLOSING NOTES PATIENT AWAKE IN BED RESTING, A/O X 3-4. NO S/S OF PAIN NOTED AT THIS TIME. ON 3L OXYGEN VIA NC, NO DISTRESS OR SHORTNESS OF BREATH NOTED. IV ACCESS CATA PICC-LINE, INTACT, PATENT, FLUSHING WELL. PATIENT WITH EXTERNAL STUDIO POTTER WITH CURRENT READING OF ST AND HR OF 115, NO CARDIAC DISTRESS NOTED AT THIS TIME. PATIENT HAVE A MONTIEL CATHETER WAS REMOVED, OUTPUT 1000ML. SCHEDULE MEDICATIONS ADMINISTERED. ALL NEEDS ATTENDED AND ANTICIPATED. FALL AND SAFETY MEASURES IN PLACE, BED ALARM ON, BED IN LOW LOCK POSITION, CALL LIGHT AND TABLE WITHIN EASY REACH, SIDE RAILS UP X2. WILL ENDORSE TO MASTER COSMETOLOGIST.
--- NOTE | 2022-04-20 19:30 | NUR ---
noc rn opening received patient in bed, a/ox4, talking on the phone with someone. no s/s of apparent distress on 3lpm of o2 via nc. denies pain. tele monitor reading st @112 bpm. IV access on L. wrist #20G on saline lock and CATA PICC line running K+ chl. call light within reach, oriented and encouraged with the use of call light. will continue with the plan of care for patient.
[2022-04-20 20:00] VITALS: BP 140/80
[2022-04-21] VITALS (7 sets, daily range): BP systolic 142–163; BP diastolic 73–97
[2022-04-21] MEDS: CEFTRIAXONE 2 G in IV D5W 100 ML IV SCH ×2 (01:58→13:35)
[2022-04-21] MEDS: hydrALAZINE HCL IV 20 MG VIAL IV PRN (05:48)
[2022-04-21 06:41] LABS: CALCIUM, SERUM 8.4 mg/dL (8.5-10.1); CREATININE 0.7 mg/dL (0.6-1.3); MAGNESIUM 2.2 mg/dL (1.8-2.4); PHOSPHORUS 2.7 mg/dL (2.5-4.9)
[2022-04-21 07:05] LABS: BASOPHILS # (AUTO) 0.1 K/uL (0.0-0.2); BASOPHILS % (AUTO) 0.6 % (0.0-2.0); EOSINOPHILS % (AUTO) 1.8 % (0.0-6.0); HEMATOCRIT 33 % (39-51); HEMOGLOBIN 11.1 g/dL (13.5-17.5); LYMPHOCYTES # (AUTO) 1.7 K/uL (0.8-4.8); LYMPHOCYTES % (AUTO) 19.9 % (20.0-44.0); MEAN CORPUSCULAR HGB CONC 33 g/dl (31.0-36.0); MEAN CORPUSCULAR VOLUME 103 fL (80-96); MONOCYTES % (AUTO) 11.4 % (2.0-12.0); NEUTROPHILS # (AUTO) 5.7 K/uL (1.8-8.9); NEUTROPHILS % (AUTO) 66.3 % (43.0-81.0); PLATELET COUNT (AUTO) 333 K/uL (150-450); POTASSIUM 2.6 mmol/L (3.5-5.1); RED BLOOD CELL COUNT(AUTO) 3.23 MIL/uL (4.5-6.0); WHITE BLOOD COUNT (AUTO) 8.6 K/uL (4.3-11.0)
--- NOTE | 2022-04-21 07:31 | NUR ---
noc rn closing needs attended. report given to VALE Diego for continuity of care.
--- NOTE | 2022-04-21 08:07 | NUR ---
PAVING RAMMER OPENING NOTES: RECEIVED PT IN BED ASLEEP, EASILY AROUSED WITH STIMULI. A/O X 4 NO SOB OR CARDIAC DISTRESS NOTED. ON TELE MONITOR ATTACHED WITH CURRENT READING : SINUS TACHY @108 BPM. IV ACCESS ON CATA PICC LINE AND LEFT WRIST GAUGE 20 PATENT, INTACT AND INFUSING IV FLUIDS NS WITH KCL 1L @ 125ML/HR. SAFETY PRECAUTIONS MAINTAINED: BED LOCKED AND IN LOWEST POSITION, BED ALARM ON. SIDE RAILS UP X 2 . CALL LIGHT IN EASY REACH FOR HELP.
[2022-04-21] MEDS: VALACYCLOVIR HCL 500 MG TABLET PO SCH (08:40)
[2022-04-21] MEDS: PANTOPRAZOLE 40 MG VIAL IV SCH (08:41)
[2022-04-21] MEDS: Potassium Chloride 20 MEQ in IV NS 0.9% 1,000 ML IV SCH ×2 (08:47→18:56)
[2022-04-21] MEDS ORDERED: POTASSIUM CHLORIDE 20 MEQ TAB.PRT.SR PO ONE (09:30)
[2022-04-21] MEDS: VANCOMYCIN 1.25 GM in IV D5W 250 ML IV SCH ×2 (12:02→23:23)
[2022-04-21] MEDS: LOSARTAN POTASSIUM 50 MG TABLET PO SCH (12:12)
[2022-04-21] MEDS: AMLODIPINE BESYLATE 10 MG TABLET PO SCH (12:13)
[2022-04-21] MEDS: ACYCLOVIR IV 800 MG in IV D5W 100 ML IV SCH ×2 (13:49→21:06)
--- NOTE | 2022-04-21 14:30 | NUR ---
RN NOTES: RECEIVED A CALL FROM LAB ([facility]) SHE CANCELLED FEW ORDERS AND SHE STATED SHE TALKED TO DR SALGUERO.
[2022-04-21 16:36] LABS: BAND % (MANUAL) 5 % (0.0-5.0); BASOPHILS % (MANUAL) 0 % (0.0-2.0); EOSINOPHILS % (MANUAL) 3 % (0-4); LYMPHOCYTES % (MANUAL) 16 % (16-48); MONOCYTES % (MANUAL) 5 % (0-11.0); NEUTROPHILS % (MANUAL) 71 (42-76)
[2022-04-21] MEDS: ENOXAPARIN SODIUM 40 MG/0.4 ML DISP.SYRIN SQ SCH (17:33)
--- NOTE | 2022-04-21 18:56 | NUR ---
APARTMENT LEASING CONSULTANT CLOSING NOTES: PT IN BED ASLEEP, EASILY AROUSED WITH STIMULI. A/O X 4 NO SOB OR CARDIAC DISTRESS NOTED. ON TELE MONITOR ATTACHED WITH CURRENT READING : SINUS RHYTHM @100 BPM. IV ACCESS ON CATA PICC LINE AND LEFT WRIST GAUGE 20 PATENT, INTACT AND INFUSING IV FLUIDS NS WITH KCL 1L @ 80ML/HR. SAFETY PRECAUTIONS MAINTAINED: BED LOCKED AND IN LOWEST POSITION, BED ALARM ON. SIDE RAILS UP X 2 . CALL LIGHT IN EASY REACH FOR HELP. ENDORSED TO NOC SHIFT FOR JOHN.
--- NOTE | 2022-04-21 19:13 | NUR ---
RN NOTES: RECEIVED AWAKE ON BED ON SEMI FOWLERS POSITION, A/OX4, ESTONIAN SPEAKING, WITH O2 AT 3L/MIN VIA NC, ON CARDIAC MONDOR SR-110, CONTINENT B/B, CATA PICC LINE WITH IVF ON NS WITH KCL AT 80 ML/HR INFUSING WELL,HIS MONTIEL CATH REMOVED YESTERDAY, HE HAS LOOSE STOOL IN THE MORNING AWAITING FOR RESULT OF [id number], ON BED REST, POTASSIUM REPLACED IN THE MORNING, HE HAS PENDING LAB AND RESULTS TO BE FOLLOWED UP IN THE MORNING.KEPT ON CLOSE WATCH.
--- NOTE | 2022-04-21 20:36 | NUR ---
RN NOTES: AROUND 2009 FOLLOWED IN PHARMACY HIS ZOVIRAX IV MED NOT AVAILABLE SPOKE TO [facility], THEY WILL SEND IT TO [facility].
--- NOTE | 2022-04-21 23:23 | NUR ---
RN NOTES: HIS INCONTINENT PAD FULLY SOAKED WITH URINE, CLEAN AND CHANGE, BLISTER ON HIS LIPS NOTED WITH DRY BLOOD, CLEANED.COOPERATIVE WITH CARE, NO SOB NOTED.
[2022-04-22] VITALS (7 sets, daily range): BP systolic 112–152; BP diastolic 73–86
[2022-04-22] MEDS: CEFTRIAXONE 2 G in IV D5W 100 ML IV SCH ×2 (01:59→13:32)
[2022-04-22] MEDS: ACYCLOVIR IV 800 MG in IV D5W 100 ML IV SCH (04:58)
--- NOTE | 2022-04-22 06:53 | NUR ---
RN NOTES: ABLE TO REST AND SLEEP AROUND 0400, STILL ASLEEP, NO SOB, NO FEVER, NO SIGN OF TACHYCARDIA, NO TACHYPNEA, SLEEPING COMFORTABLY,ON DIGITAL PRINTER OPERATOR SR-99, HE PEE 3X, CLEAN AND CHANGE, LABS DONE THIS MORNING, ENDORSED TO F/U RESULT OF C.DIFF, HE PASS STOOL X1 , IVF CONSUMED, STARTED NEW BAG OF NS+20 mEq OF KCL AT 80 ML/HR, REMAINED STABLE IN THE NIGHT.
[2022-04-22] MEDS: Potassium Chloride 20 MEQ in IV NS 0.9% 1,000 ML IV SCH (07:00)
--- NOTE | 2022-04-22 07:00 | NUR ---
CLEAN UP PERSON OPENING NOTES: RECEIVED PT IN BED ASLEEP, EASILY AROUSED WITH STIMULI. PT SERBIAN SPEAKING,PLEASANT BUT ABLE TO UNDERSTAND AZERI. A/O X 4 NO SOB OR CARDIAC DISTRESS NOTED. ON TELE MONITOR ATTACHED WITH CURRENT READING : SINUS RHYTHM @99 BPM. IV ACCESS ON CATA PICC LINE AND LEFT WRIST GAUGE 20 PATENT, INTACT AND INFUSING IV FLUIDS NS WITH KCL 1L @ 80ML/HR. NOTED WITH BLISTERS/DRIED BLOOD ON HIS UPPER LIP EXTENDING TO HIS NOSE. SAFETY PRECAUTIONS MAINTAINED: BED LOCKED AND IN LOWEST POSITION, BED ALARM ON. SIDE RAILS UP X 2 . CALL LIGHT IN EASY REACH FOR HELP.
[2022-04-22 07:11] LABS: CALCIUM, SERUM 8.1 mg/dL (8.5-10.1); CREATININE 0.6 mg/dL (0.6-1.3); MAGNESIUM 2.2 mg/dL (1.8-2.4); PHOSPHORUS 2.5 mg/dL (2.5-4.9)
[2022-04-22 07:29] LABS: POTASSIUM 2.7 mmol/L (3.5-5.1)
[2022-04-22] MEDS: AMLODIPINE BESYLATE 10 MG TABLET PO SCH (08:43)
[2022-04-22] MEDS: PANTOPRAZOLE 40 MG TABLET.DR PO SCH (08:44)
[2022-04-22] MEDS: LOSARTAN POTASSIUM 50 MG TABLET PO SCH (08:45)
[2022-04-22] MEDS ORDERED: POTASSIUM CHLORIDE 20 MEQ TAB.PRT.SR PO ONE (10:00)
[2022-04-22 10:04] LABS: BASOPHILS # (AUTO) 0.1 K/uL (0.0-0.2); BASOPHILS % (AUTO) 0.7 % (0.0-2.0); EOSINOPHILS % (AUTO) 1.3 % (0.0-6.0); HEMATOCRIT 36 % (39-51); HEMOGLOBIN 11.8 g/dL (13.5-17.5); LYMPHOCYTES # (AUTO) 1.6 K/uL (0.8-4.8); LYMPHOCYTES % (AUTO) 19.4 % (20.0-44.0); MEAN CORPUSCULAR HGB CONC 33 g/dl (31.0-36.0); MEAN CORPUSCULAR VOLUME 104 fL (80-96); MONOCYTES # (AUTO) 0.7 K/uL (0.1-1.30); MONOCYTES % (AUTO) 8.3 % (2.0-12.0); NEUTROPHILS # (AUTO) 5.9 K/uL (1.8-8.9); NEUTROPHILS % (AUTO) 70.3 % (43.0-81.0); PLATELET COUNT (AUTO) 354 K/uL (150-450); RED BLOOD CELL COUNT(AUTO) 3.45 MIL/uL (4.5-6.0); WHITE BLOOD COUNT (AUTO) 8.3 K/uL (4.3-11.0)
[2022-04-22] MEDS: VANCOMYCIN 1.25 GM in IV D5W 250 ML IV SCH (11:21)
[2022-04-22] MEDS: ACYCLOVIR IV 0.8 GM in IV D5W 250 ML IV SCH ×2 (12:16→21:40)
[2022-04-22] MEDS: Potassium Chloride 40 MEQ in IV NS 0.9% 1,000 ML IV SCH (17:08)
[2022-04-22] MEDS: ENOXAPARIN SODIUM 40 MG/0.4 ML DISP.SYRIN SQ SCH (17:09)
--- NOTE | 2022-04-22 19:10 | NUR ---
INTERPRETIVE PROGRAM COORDINATOR CLOSING NOTES: PATIENT IN BED, AWAKE . A/O X 4 NO SOB OR CARDIAC DISTRESS NOTED. ON TELE MONITOR ATTACHED WITH CURRENT READING : SINUS RHYTHM @104 BPM IV ACCESS ON CATA PICC LINE AND LEFT WRIST GAUGE 20 PATENT, INTACT AND INFUSING IV FLUIDS NS WITH KCL 1L @ 80ML/HR. SAFETY PRECAUTIONS MAINTAINED: BED LOCKED AND IN LOWEST POSITION, BED ALARM ON. SIDE RAILS UP X 2 . CALL LIGHT IN EASY REACH FOR HELP. ENDORSED TO NOC SHIFT FOR JOHN.
--- NOTE | 2022-04-22 19:45 | NUR ---
RN OPENING NOTE RECEIVED PATIENT IN BED; AWAKE, ALERT AND ORIENTED X 4. ON O2 INHALATION @ 3LPM VIA NASAL CANNULA; WELL TOLERATED. NO SOB OR CARDIAC DISTRESS NOTED. ON TELEMETRY MONITORING WITH READING OF SINUS TACHYCARDIA HR-102 BPM. WITH CATA PICC LINE AND LEFT WRIST; PATENT, INTACT AND INFUSING WITH KCL 40 MEQ IN NS 1L @ 80ML/HR. SAFETY PRECAUTIONS IMPLEMENTED: CALL LIGHT AND TABLE WITHIN REACH, SIDE RAILS UP X 2, BED IN LOWEST LOCKED POSITION. WILL CONTINUE PLAN OF CARE.
[2022-04-23] VITALS: BP 156/85
[2022-04-23] MEDS: VANCOMYCIN 1.25 GM in IV D5W 250 ML IV SCH (00:33)
[2022-04-23] MEDS: CEFTRIAXONE 2 G in IV D5W 100 ML IV SCH ×2 (02:31→14:11)
[2022-04-23 04:00] VITALS: BP 158/83
[2022-04-23] MEDS: ACYCLOVIR IV 0.8 GM in IV D5W 250 ML IV SCH ×3 (05:27→20:54)
[2022-04-23] MEDS: Potassium Chloride 40 MEQ in IV NS 0.9% 1,000 ML IV SCH ×2 (06:45→19:15)
--- NOTE | 2022-04-23 06:50 | NUR ---
RN CLOSING NOTE PATIENT IN BED; AWAKE, A/O X 4. ON O2 INHALATION @ 3LPM VIA NASAL CANNULA; TOLERATING WELL. NOT IN ANY FORM OF RESPIRATORY DISTRESS NOTED. ON TELEMETRY MONITORING WITH READING OF SINUS RHYTHM HR-95 BPM. WITH CATA PICC LINE; PATENT, INTACT AND INFUSING WITH KCL 40 MEQ IN NS 1L @ 80ML/HR; FLUSHES WELL. SAFETY PRECAUTIONS MAINTAINED: CALL LIGHT AND TABLE WITHIN REACH, SIDE RAILS UP X 2, BED IN LOWEST LOCKED POSITION. ENDORSED TO VALE MANNING FOR JOHN.
--- NOTE | 2022-04-23 07:30 | NUR ---
RN OPENING NOTE- PT AWAKE, ALERT AND ORIENTED X 4. ON O2 INHALATION @ 3LPM VIA NASAL CANNULA; WELL TOLERATED. NO SOB OR CARDIAC DISTRESS NOTED. ON TELEMETRY MONITORING WITH READING OF SINUS TACHYCARDIA HR-110 BPM. WITH CATA PICC LINE AND LEFT WRIST; PATENT, INTACT AND INFUSING WITH KCL 40 MEQ IN NS 1L @ 80ML/HR. SAFETY PRECAUTIONS IMPLEMENTED: CALL LIGHT AND TABLE WITHIN REACH, SIDE RAILS UP X 2, BED IN LOWEST LOCKED POSITION. WILL CONTINUE PLAN OF CARE. MONITOR / ASSIST
[2022-04-23] MEDS: LOSARTAN POTASSIUM 50 MG TABLET PO SCH (09:00)
[2022-04-23] MEDS: PANTOPRAZOLE 40 MG TABLET.DR PO SCH (09:01)
[2022-04-23] MEDS: AMLODIPINE BESYLATE 10 MG TABLET PO SCH (09:01)
[2022-04-23 09:31] VITALS: BP 146/80
[2022-04-23 09:32] LABS: CALCIUM, SERUM 8.1 mg/dL (8.5-10.1); CREATININE 0.6 mg/dL (0.6-1.3); MAGNESIUM 2.2 mg/dL (1.8-2.4); PHOSPHORUS 2.7 mg/dL (2.5-4.9); POTASSIUM 3.5 mmol/L (3.5-5.1)
[2022-04-23 09:40] LABS: BASOPHILS % (AUTO) 0.3 % (0.0-2.0); EOSINOPHILS % (AUTO) 0.6 % (0.0-6.0); HEMATOCRIT 34 % (39-51); HEMOGLOBIN 11.5 g/dL (13.5-17.5); LYMPHOCYTES # (AUTO) 1.9 K/uL (0.8-4.8); LYMPHOCYTES % (AUTO) 13.9 % (20.0-44.0); MEAN CORPUSCULAR HGB CONC 34 g/dl (31.0-36.0); MEAN CORPUSCULAR VOLUME 103 fL (80-96); MONOCYTES # (AUTO) 0.7 K/uL (0.1-1.30); MONOCYTES % (AUTO) 5.5 % (2.0-12.0); NEUTROPHILS # (AUTO) 10.7 K/uL (1.8-8.9); NEUTROPHILS % (AUTO) 79.7 % (43.0-81.0); PLATELET COUNT (AUTO) 473 K/uL (150-450); RED BLOOD CELL COUNT(AUTO) 3.33 MIL/uL (4.5-6.0); WHITE BLOOD COUNT (AUTO) 13.4 K/uL (4.3-11.0)
[2022-04-23 16:15] VITALS: BP 134/80
--- NOTE | 2022-04-23 16:20 | NUR ---
RN NOTE- REPORT GIVEN FOR JOHN TO VALE BARRERA.
[2022-04-23] MEDS: ENOXAPARIN SODIUM 40 MG/0.4 ML DISP.SYRIN SQ SCH (17:21)
[2022-04-23 18:36] LABS: BAND % (MANUAL) 1 % (0.0-5.0); EOSINOPHILS % (MANUAL) 2 % (0-4); LYMPHOCYTES % (MANUAL) 16 % (16-48); MONOCYTES % (MANUAL) 5 % (0-11.0); NEUTROPHILS % (MANUAL) 76 (42-76)
--- NOTE | 2022-04-23 18:50 | NUR ---
RN CLOSING NOTE PATIENT IN BED AWAKE, ALERT AND ORIENTED X 4. VERBALLY RESPONSIVE, NO SIGNS OF ACUTE DISTRESS NOTED. REMAINS ON O2 INHALATION @ 2LPM VIA N/C, TOLERATED WELL. NO SOB OR CARDIAC DISTRESS NOTED. ON TELEMETRY MONITORING WITH READING OF SINUS TACHYCARDIA HR @108 BPM. CATA PICC LINE, PATENT AND INTACT AND INFUSING WITH KCL 40 MEQ IN NS 1L @ 80ML/HR. SAFETY PRECAUTIONS MAINTAINED, BED IN LOWEST AND LOCKED POSITION, SIDE RAILS UP X2, CALL LIGHT AND TABLE PLACED WITHIN EASY REACH. WILL ENDORSE TO NEXT SHIFT FOR CONTINUITY OF CARE.
--- NOTE | 2022-04-23 19:30 | NUR ---
FRAME MAKER OPENING NOTE RECEIVED PT AWAKE IN BED. A/O X4 AND ABLE TO MAKE NEEDS KNOWN. PT ON O2 @ 2LPM, TOLERATING WELL. NO SOB OR S/S OF RESPIRATORY DISTRESS. BREATHING EVEN AND UNLABORED. ON EXTERNAL STRIPPING CUTTER AND WINDER READING ST 107 BPM. IV ACCESS CATA PICC LINE, INTACT AND PATENT, RUNNING KCL 40 MEQ @ 80 ML/HR. SAFETY PRECAUTIONS IN PLACE. BED IN LOWEST LOCKED POSITION, HOB ELEVATED, SIDE RAILS UP X2, AND CALL LIGHT AND TABLE WITHIN REACH. ALL NEEDS MET AT THIS TIME.
[2022-04-23 20:00] VITALS: BP 135/83
[2022-04-24] VITALS: BP 149/86
[2022-04-24] MEDS: CEFTRIAXONE 2 G in IV D5W 100 ML IV SCH ×2 (02:00→14:16)
[2022-04-24 04:00] VITALS: BP 142/76
[2022-04-24] MEDS: ACYCLOVIR IV 0.8 GM in IV D5W 250 ML IV SCH ×2 (05:11→12:57)
--- NOTE | 2022-04-24 06:51 | NUR ---
EDUCATION COUNSELOR CLOSING NOTE PT AWAKE IN BED. A/O X4 AND ABLE TO MAKE NEEDS KNOWN. PT ON O2 @ 2LPM, TOLERATING WELL. NO SOB OR S/S OF RESPIRATORY DISTRESS. BREATHING EVEN AND UNLABORED. ON EXTERNAL MERCHANDISING CONSULTANT READING ST 109 BPM. IV ACCESS CATA PICC LINE, INTACT AND PATENT, RUNNING KCL 40 MEQ @ 80 ML/HR. ALL DUE MEDS GIVEN ORDERED. SAFETY PRECAUTIONS IN PLACE AT ALL TIMES. BED IN LOWEST LOCKED POSITION, HOB ELEVATED, SIDE RAILS UP X2, AND CALL LIGHT AND TABLE WITHIN REACH. ALL NEEDS MET AT THIS TIME AND WILL ENDORSE TO ONCOMING NURSE FOR JOHN.
[2022-04-24 07:00] VITALS: BP 142/88
[2022-04-24 07:23] LABS: CALCIUM, SERUM 8.1 mg/dL (8.5-10.1); CREATININE 0.6 mg/dL (0.6-1.3); MAGNESIUM 2.4 mg/dL (1.8-2.4); PHOSPHORUS 3.2 mg/dL (2.5-4.9); POTASSIUM 3.6 mmol/L (3.5-5.1)
--- NOTE | 2022-04-24 07:35 | NUR ---
MANAGING PARTNER DIGITAL CONTENT MARKETING [place] OPENING NOTES PATIENT IN BED ALERT ORIENTED X 4, NO ACUTE DISTRESS NOTED, BREATHING UNLABORED, NO SOB NOTED. DENIED ANY PAIN. IV ACCESS PATENT AND INTACT, NO REDNESS NO SWELLING NOTED, RUNNING ORDERED IV FLUIDS. SAFETY MEASURES IN PLACE, CALL LIGHT WITHIN REACH. WILL CONTINUE TO MONITOR ACCORDINGLY.
[2022-04-24] MEDS: Potassium Chloride 40 MEQ in IV NS 0.9% 1,000 ML IV SCH ×2 (08:20→20:23)
[2022-04-24] MEDS: LOSARTAN POTASSIUM 50 MG TABLET PO SCH (08:41)
[2022-04-24] MEDS: PANTOPRAZOLE 40 MG TABLET.DR PO SCH (08:47)
[2022-04-24] MEDS: AMLODIPINE BESYLATE 10 MG TABLET PO SCH (08:48)
[2022-04-24 09:09] LABS: BASOPHILS # (AUTO) 0.1 K/uL (0.0-0.2); BASOPHILS % (AUTO) 0.7 % (0.0-2.0); EOSINOPHILS % (AUTO) 0.6 % (0.0-6.0); HEMATOCRIT 31 % (39-51); HEMOGLOBIN 10.7 g/dL (13.5-17.5); LYMPHOCYTES # (AUTO) 1.9 K/uL (0.8-4.8); LYMPHOCYTES % (AUTO) 14.1 % (20.0-44.0); MEAN CORPUSCULAR HGB CONC 34 g/dl (31.0-36.0); MEAN CORPUSCULAR VOLUME 103 fL (80-96); MONOCYTES # (AUTO) 0.9 K/uL (0.1-1.30); MONOCYTES % (AUTO) 6.6 % (2.0-12.0); NEUTROPHILS # (AUTO) 10.4 K/uL (1.8-8.9); PLATELET COUNT (AUTO) 491 K/uL (150-450); RED BLOOD CELL COUNT(AUTO) 3.03 MIL/uL (4.5-6.0); WHITE BLOOD COUNT (AUTO) 13.3 K/uL (4.3-11.0)
[2022-04-24 12:00] VITALS: BP 144/81
[2022-04-24 16:00] VITALS: BP 145/76
[2022-04-24] MEDS: ENOXAPARIN SODIUM 40 MG/0.4 ML DISP.SYRIN SQ SCH (17:18)
--- NOTE | 2022-04-24 19:00 | NUR ---
COUNSEL CLOSING NOTES PATIENT IN BED ALERT ORIENTED X 4, NO ACUTE DISTRESS NOTED, BREATHING UNLABORED, NO SOB NOTED. DENIED ANY PAIN. IV ACCESS PATENT AND INTACT, NO REDNESS NO SWELLING NOTED, RUNNING ORDERED IV FLUIDS. SAFETY MEASURES IN PLACE, CALL LIGHT WITHIN REACH. NEEDS ATTENDED AND ANTICIPATED. WILL ENDORSE TO NIGHT NURSE FOR CONTINUITY OF CARE.
--- NOTE | 2022-04-24 19:00 | NUR ---
MS RN CLOSING NOTES PATIENT IN BED ALERT ORIENTED X 4, NO ACUTE DISTRESS NOTED, BREATHING UNLABORED, NO SOB NOTED. DENIED ANY PAIN. SAFETY MEASURES IN PLACE, CALL LIGHT WITHIN REACH. WILL ENDORSE TO NIGHT NURSE FOR CONTINUITY OF CARE. Addendum: 04/24/22 at 1928 by NIKOS SAAVEDRA RN error- wrong patient
--- NOTE | 2022-04-24 19:30 | NUR ---
RN OPENING NOTE PATIENT IN BED, AWAKE. PATIENT IS A/O X 4, ABLE TO MAKE NEEDS KNOWN. PATIENT IS PRIMARILY [place] SPEAKING BUT PATIENT IS ABLE TO UNDERSTAND AND SPEAK SOME CHINESE. PATIENT IS ON RA, TOLERATING WELL, NO SOB NOTED OR BREATHING DIFFICULTY. TELE MONITOR READS ST 109 BPM. PATIENT HAS A CTAA PICC LINE, FLUSHING WELL WITH KCL 40 MEQ IN NS ONGOING. SAFETY MEASURES IN PLACE: BED LOCKED AND IN LOWEST POSITION, CALL LIGHT WITHIN REACH, SIDE RAILS UP. WILL MONITOR PATIENT CLOSELY.
[2022-04-24 20:00] VITALS: BP 145/81
--- NOTE | 2022-04-24 22:45 | NUR ---
RN NOTE ACYVLOVIR IV NOT AVAILABLE AT THE UNIT, ALREADY FAXED ORDER FOR ACYCLOVIR TO NURSING ARCHIVAL STUDIES PROFESSOR AND NOTIFIED. CALLED TO FOLLOW UP, NURSING ARCHIVAL STUDIES PROFESSOR STATES SHE WILL PROVIDE MEDICATION.
[2022-04-24] MEDS ORDERED: ACYCLOVIR IV 500 MG VIAL IV ONE (22:59)
[2022-04-25] VITALS: BP 159/89
[2022-04-25] MEDS: ACYCLOVIR IV 0.8 GM in IV D5W 250 ML IV SCH ×4 (00:37→23:47)
--- NOTE | 2022-04-25 01:15 | NUR ---
RN JOHN NOTE PATIENT CARE TRANSFERRED TO [facility], PATIENT NOT IN ANY DISTRESS. VSS.
[2022-04-25] MEDS: CEFTRIAXONE 2 G in IV D5W 100 ML IV SCH ×2 (02:15→13:20)
[2022-04-25 04:00] VITALS: BP 145/82
--- NOTE | 2022-04-25 05:17 | NUR ---
PREDATORY ANIMAL TRAPPER NOTE CALLED PHARMACY REGARDING ACYCLOVIR, LAST DOSE GIVEN LATE BECAUSE MEDICATION WASN'T AVAILABLE. MEDICATION SUPPOSED TO BE GIVEN Q8H, SO NEXT DOSE SHOULD BE AT 8:30 AM, PER PHARMACY THEY WILL CHANGE TIME OF NEXT DOSE
--- NOTE | 2022-04-25 07:20 | NUR ---
RN OPENING NOTE RECEIVED PATIENT IN BED AWAKE, ALERT AND ORIENTED X3, VERBALLY RESPONSIVE. NO SIGNS OF ACUTE DISTRESS NOTED. CURRENTLY ON ROOM AIR, NO SOB NOTED, BREATHING EVEN AND UNLABORED. DENIES ANY PAIN AT THIS TIME. ON TELE MONITORING SHOWING SINUS TACH, HR @108. NOTED WITH RIGHT UPPER ARM PICC LINE 3 LUMEN, WITH NS + KCL 40 MEQ @ 80 ML/HR INFUSING WELL. SAFETY MEASURE IN PLACE. BED IN LOWEST AND LOCKED POSITION. SIDE RAILS UP X2, CALL LIGHT PLACED WITHIN EASY REACH. WILL CONTINUE TO MONITOR PATIENT.
[2022-04-25 07:38] LABS: BASOPHILS # (AUTO) 0.1 K/uL (0.0-0.2); BASOPHILS % (AUTO) 0.7 % (0.0-2.0); EOSINOPHILS % (AUTO) 0.9 % (0.0-6.0); HEMATOCRIT 34 % (39-51); HEMOGLOBIN 11.5 g/dL (13.5-17.5); LYMPHOCYTES # (AUTO) 2.2 K/uL (0.8-4.8); LYMPHOCYTES % (AUTO) 23.3 % (20.0-44.0); MEAN CORPUSCULAR HGB CONC 34 g/dl (31.0-36.0); MEAN CORPUSCULAR VOLUME 103 fL (80-96); MONOCYTES % (AUTO) 10.5 % (2.0-12.0); NEUTROPHILS # (AUTO) 6.1 K/uL (1.8-8.9); NEUTROPHILS % (AUTO) 64.6 % (43.0-81.0); PLATELET COUNT (AUTO) 555 K/uL (150-450); RED BLOOD CELL COUNT(AUTO) 3.31 MIL/uL (4.5-6.0); WHITE BLOOD COUNT (AUTO) 9.4 K/uL (4.3-11.0)
--- NOTE | 2022-04-25 07:38 | NUR ---
SURVEY OPERATIONS DIRECTOR CLOSING NOTE PATIENT AWAKE IN BED, ALERT/ORIENTED X 3, PT ABLE TO MAKE NEEDS KNOWN. PT STABLE ON RA, NO S/S OF DISTRESS OR SOB NOTED, BREATHING EVEN AND UNLABORED. PATIENT ON EXTERNAL AGRICULTURAL RESEARCH ENGINEER READING SINUS TACHY, HR: 109. MEDICATIONS GIVEN ORDERED, PT NEEDS MET THROUGHOUT SHIFT. CATA PICC LINE INTACT AND INFUSING NS WITH 40 MEQ KCL @ 80 ML/HR. SAFETY MEASURES IN PLACE: CALL LIGHT WITHIN REACH, SIDE RAILS UP X 2, BED LOCKED IN LOWEST POSITION, BED ALARM ON. ENDORSED TO DAYSHIFT NURSE FOR CONTINUITY OF CARE
[2022-04-25 07:56] LABS: CALCIUM, SERUM 8.4 mg/dL (8.5-10.1); CREATININE 0.6 mg/dL (0.6-1.3); MAGNESIUM 2.3 mg/dL (1.8-2.4); PHOSPHORUS 2.9 mg/dL (2.5-4.9); POTASSIUM 3.5 mmol/L (3.5-5.1)
[2022-04-25 08:00] VITALS: BP 112/94
[2022-04-25] MEDS: LOSARTAN POTASSIUM 50 MG TABLET PO SCH (08:31)
[2022-04-25] MEDS: PANTOPRAZOLE 40 MG TABLET.DR PO SCH (08:31)
[2022-04-25] MEDS: AMLODIPINE BESYLATE 10 MG TABLET PO SCH (08:31)
[2022-04-25] MEDS: IV NS 0.9% 1,000 ML IV PRN (15:24)
[2022-04-25] MEDS: ACETAMINOPHEN 325 MG TABLET PO PRN (16:54)
[2022-04-25] MEDS: ENOXAPARIN SODIUM 40 MG/0.4 ML DISP.SYRIN SQ SCH (17:17)
[2022-04-25] MEDS: VALSARTAN 80 MG TABLET PO SCH ×2 (18:02→21:03)
--- NOTE | 2022-04-25 18:52 | NUR ---
RN CLOSING NOTE PATIENT IN BED AWAKE, ALERT AND ORIENTED. VERBALLY RESPONSIVE. NO SIGNS OF ACUTE DISTRESS NOTED. CURRENTLY ON ROOM AIR, NO SOB NOTED, BREATHING EVEN AND UNLABORED. DENIES ANY PAIN AT THIS TIME. CONTINUE ON TELE MONITORING SHOWING SINUS TACHY, HR @104. RIGHT UPPER ARM PICC LINE 3 LUMEN, INTACT AND PATENT, WITH NS @75 ML/HR INFUSING WELL. SAFETY MEASURE IN PLACE. BED IN LOWEST AND LOCKED POSITION. SIDE RAILS UP X2, CALL LIGHT PLACED WITHIN EASY REACH. WILL ENDORSE TO NEXT SHIFT FOR CONTINUITY OF CARE.
--- NOTE | 2022-04-25 19:30 | NUR ---
RN OPENING NOTE PATIENT IN BED, AWAKE. PATIENT IS A/O X 4, ABLE TO MAKE NEEDS KNOWN. PATIENT IS PRIMARILY CZE[place] SPEAKING BUT PATIENT IS ABLE TO UNDERSTAND AND SPEAK SOME [place]. PATIENT IS ON RA, TOLERATING WELL, NO SOB NOTED OR BREATHING DIFFICULTY. TELE MONITOR READS ST 105 BPM. PATIENT HAS A CATA PICC LINE, WITH NS AT 75 ML/HR ONGOING, INFUSING WELL. PATIENT DOES NOT REPORT ANY PAIN AT THIS TIME. SAFETY MEASURES IN PLACE: BED LOCKED AND IN LOWEST POSITION, CALL LIGHT WITHIN REACH, SIDE RAILS UP. WILL MONITOR PATIENT CLOSELY.
[2022-04-25 20:00] VITALS: BP 146/89
[2022-04-26] VITALS (7 sets, daily range): BP systolic 130–169; BP diastolic 79–110
[2022-04-26] MEDS: CEFTRIAXONE 2 G in IV D5W 100 ML IV SCH ×2 (02:01→13:50)
[2022-04-26] MEDS: ACETAMINOPHEN 325 MG TABLET PO PRN ×2 (03:11→15:52)
--- NOTE | 2022-04-26 03:12 | NUR ---
RN NOTE TYLENOL GIVEN FOR FEVER 99.9, COOLING MEASURES INITIATED. PATIENTS HR 130S AT THIS TIME, PATIENT DOES NOT FEEL ANY CARDIAC SYMPTOMS. PATIENT REFUSING TO REMOVE HIS THICK BLANKET FROM HOME NOW EVEN THOUGH EDUCATED PATIENT THAT HE NEEDS TO COOL DOWN D/T HIS FEVER. PATIENT REFUSING PICTURES TAKEN OF HIS SKIN ISSUES STATES THAT HE DOESN'T WANT TO DO IT NOW AND FOR STAFF TO DO IT IN THE MORNING AFTER BREAKFAST.
[2022-04-26 06:16] LABS: BASOPHILS # (AUTO) 0.1 K/uL (0.0-0.2); BASOPHILS % (AUTO) 0.8 % (0.0-2.0); EOSINOPHILS % (AUTO) 0.6 % (0.0-6.0); HEMATOCRIT 35 % (39-51); HEMOGLOBIN 11.9 g/dL (13.5-17.5); LYMPHOCYTES # (AUTO) 1.7 K/uL (0.8-4.8); LYMPHOCYTES % (AUTO) 16.5 % (20.0-44.0); MEAN CORPUSCULAR HGB CONC 34 g/dl (31.0-36.0); MEAN CORPUSCULAR VOLUME 103 fL (80-96); MONOCYTES # (AUTO) 1.4 K/uL (0.1-1.30); MONOCYTES % (AUTO) 13.1 % (2.0-12.0); NEUTROPHILS # (AUTO) 7.3 K/uL (1.8-8.9); PLATELET COUNT (AUTO) 564 K/uL (150-450); RED BLOOD CELL COUNT(AUTO) 3.37 MIL/uL (4.5-6.0); WHITE BLOOD COUNT (AUTO) 10.6 K/uL (4.3-11.0)
[2022-04-26 06:44] LABS: CALCIUM, SERUM 8.6 mg/dL (8.5-10.1); CREATININE 1.6 mg/dL (0.6-1.3); MAGNESIUM 2.1 mg/dL (1.8-2.4); PHOSPHORUS 4.3 mg/dL (2.5-4.9); POTASSIUM 3.6 mmol/L (3.5-5.1)
--- NOTE | 2022-04-26 07:30 | NUR ---
RUG CLEANER HAND OPENING NOTE RECEIVED PATIENT IN BED AWAKE, ALERT AND ORIENTED X3, VERBALLY RESPONSIVE. NO SIGNS OF ACUTE DISTRESS NOTED. ON ROOM AIR, NO SOB NOTED, BREATHING EVEN AND UNLABORED. DENIES ANY PAIN AT THIS TIME. ON TELE MONITORING SINUS TACH, HR 120. RIGHT UPPER ARM PICC LINE INTACT.ALL SAFETY MEASURE IN PLACE. BED IN LOWEST AND LOCKED POSITION. SIDE RAILS UP X2, CALL LIGHT PLACED WITHIN EASY REACH. WILL CONTINUE TO MONITOR PATIENT.
--- NOTE | 2022-04-26 07:45 | NUR ---
RN CLOSING NOTE PATIENT IN BED, AWAKE. PATIENT IS A/O X 4, ABLE TO MAKE NEEDS KNOWN. PATIENT IS PRIMARILY THAI SPEAKING BUT PATIENT IS ABLE TO UNDERSTAND AND SPEAK SOME [place]. PATIENT IS ON RA, TOLERATING WELL, NO SOB NOTED OR BREATHING DIFFICULTY. TELE MONITOR READS ST 120 BPM. PATIENT HAS A CATA PICC LINE, WITH NS AT 75 ML/HR ONGOING, INFUSING WELL. PATIENT DOES NOT REPORT ANY PAIN AT THIS TIME. SAFETY MEASURES IN PLACE: BED LOCKED AND IN LOWEST POSITION, CALL LIGHT WITHIN REACH, SIDE RAILS UP. ALL NEEDS MET AND ATTENDED. ALL ORDERS CARRIED OUT. ENDORSED TO DAY SHIFT NURSE FOR JOHN.
[2022-04-26] MEDS: ACYCLOVIR IV 0.8 GM in IV D5W 250 ML IV SCH (09:14)
[2022-04-26] MEDS: PANTOPRAZOLE 40 MG TABLET.DR PO SCH (09:14)
[2022-04-26] MEDS: AMLODIPINE BESYLATE 10 MG TABLET PO SCH (09:15)
[2022-04-26] MEDS: VALSARTAN 80 MG TABLET PO SCH ×2 (09:16→21:00)
[2022-04-26] MEDS: hydrALAZINE HCL IV 20 MG VIAL IV PRN (12:25)
[2022-04-26] MEDS: ENOXAPARIN SODIUM 40 MG/0.4 ML DISP.SYRIN SQ SCH (17:41)
--- NOTE | 2022-04-26 19:30 | NUR ---
LOBBY PORTER NOTE PATIENT IN BED AWAKE, ALERT AND ORIENTED X3, VERBALLY RESPONSIVE. NO SIGNS OF ACUTE DISTRESS NOTED. ON ROOM AIR, NO SOB NOTED, BREATHING EVEN AND UNLABORED. DENIES ANY PAIN AT THIS TIME. ON TELE MONITORING SINUS TACH, HR 120. RIGHT UPPER ARM PICC LINE INTACT. ALL DUE MEDS GIVEN ORDERED. PRN HYDRALAZINE GIVEN NO EFFECTIVE. INFORMED DR RODRIGUEZ FOR PAIN MEDICATION. ONLY ORDER FOR TYLENOL GIVEN. CALLED DR RODRIGUEZ WITH EPIC NUMBER NO CALL BACK TO REPORT HIGH PULSE RATE. ALL PERINEAL REDNESS PHOTO TAKEN AND IN THE CHART. ALL SAFETY MEASURE IN PLACE. BED IN LOWEST AND LOCKED POSITION. SIDE RAILS UP X2, CALL LIGHT PLACED WITHIN EASY REACH. WILL ENDORSE FOR JOHN..
--- NOTE | 2022-04-26 19:46 | NUR ---
oc rn opening received patient in bed, a/ox4. no s/s of apparent distress on room air. denies pain. tele monitor reading st @123 bpm. IV access CATA PICC line noted. call light within reach, oriented and encouraged with the use of call light. will continue with the plan of care for patient.
[2022-04-26] MEDS: IV NS 0.9% 1,000 ML IV PRN (22:40)
[2022-04-27] VITALS: BP 159/95
[2022-04-27] MEDS: CEFTRIAXONE 2 G in IV D5W 100 ML IV SCH (02:06)
[2022-04-27] MEDS: hydrALAZINE HCL IV 20 MG VIAL IV PRN (03:05)
[2022-04-27 04:00] VITALS: BP 152/87
[2022-04-27 06:27] LABS: BASOPHILS # (AUTO) 0.1 K/uL (0.0-0.2); BASOPHILS % (AUTO) 0.9 % (0.0-2.0); EOSINOPHILS % (AUTO) 0.5 % (0.0-6.0); HEMATOCRIT 35 % (39-51); HEMOGLOBIN 11.9 g/dL (13.5-17.5); LYMPHOCYTES # (AUTO) 1.6 K/uL (0.8-4.8); LYMPHOCYTES % (AUTO) 16.1 % (20.0-44.0); MEAN CORPUSCULAR HGB CONC 34 g/dl (31.0-36.0); MEAN CORPUSCULAR VOLUME 104 fL (80-96); MONOCYTES # (AUTO) 1.4 K/uL (0.1-1.30); MONOCYTES % (AUTO) 13.7 % (2.0-12.0); NEUTROPHILS # (AUTO) 6.8 K/uL (1.8-8.9); NEUTROPHILS % (AUTO) 68.8 % (43.0-81.0); PLATELET COUNT (AUTO) 624 K/uL (150-450); RED BLOOD CELL COUNT(AUTO) 3.38 MIL/uL (4.5-6.0); WHITE BLOOD COUNT (AUTO) 9.9 K/uL (4.3-11.0)
[2022-04-27 07:06] LABS: ALBUMIN 2.3 g/dL (3.4-5.0); BILIRUBIN,TOTAL 0.2 mg/dL (0.2-1.0); CALCIUM, SERUM 9.1 mg/dL (8.5-10.1); MAGNESIUM 2.4 mg/dL (1.8-2.4); PHOSPHORUS 4.4 mg/dL (2.5-4.9); POTASSIUM 3.3 mmol/L (3.5-5.1); TOTAL PROTEIN, SERUM 8.3 g/dL (6.4-8.2)
--- NOTE | 2022-04-27 07:30 | NUR ---
RN Opening Note Patient AOx4 able to express his concerns. Discussed plan of care, patient verbalized agreement. Patient with no signs of distress or discomfort. Will monitor throughout shift and provide care as needed. All safety precautions taken, call light and table within reach, bed at lowest position.
--- NOTE | 2022-04-27 07:38 | NUR ---
noc rn closing needs attended. report given to cade Silverio for continuity of patient care.
[2022-04-27 08:00] VITALS: BP 154/91
--- NOTE | 2022-04-27 08:42 | NUR ---
WOUND CARE CONSULT: PT SEEN FOR RASH TO GROIN FOLDS, PERINEUM AND INNER BUTTOCKS. RECOMMENDATIONS MADE FOR SKIN CARE AND PROTECTION. DISCUSSED WITH NURSING STAFF. MD IN AGREEMENT WITH PLAN OF CARE.
[2022-04-27] MEDS ORDERED: ACYCLOVIR IV 800 MG in IV D5W 100 ML IV SCH (09:00)
[2022-04-27] MEDS ORDERED: Z GUARD REMEDY 4 OZ OINT TP PRN (09:00)
[2022-04-27] MEDS: AMLODIPINE BESYLATE 10 MG TABLET PO SCH (09:25)
[2022-04-27] MEDS: VALSARTAN 80 MG TABLET PO SCH ×2 (09:26→21:12)
[2022-04-27] MEDS: PANTOPRAZOLE 40 MG TABLET.DR PO SCH (09:26)
[2022-04-27] MEDS: Z GUARD REMEDY 4 OZ OINT TP SCH (09:29)
[2022-04-27] MEDS: CLOTRIMAZOLE/BETAMETASONE DIPROPIONATE 15 GM TUBE TP SCH ×2 (09:29→17:14)
[2022-04-27] MEDS ORDERED: POTASSIUM CHLORIDE 20 MEQ TAB.PRT.SR PO ONE (10:00)
[2022-04-27] MEDS: ACETAMINOPHEN 325 MG TABLET PO PRN ×2 (10:22→21:15)
[2022-04-27 12:00] VITALS: BP 133/80
[2022-04-27 12:09] LABS: *CRYPTOCOCCUS AG, CSF NEGATIVE
[2022-04-27 16:00] VITALS: BP 138/80
[2022-04-27] MEDS: ENOXAPARIN SODIUM 40 MG/0.4 ML DISP.SYRIN SQ SCH (17:13)
--- NOTE | 2022-04-27 18:02 | NUR ---
RN Closing Note Patient AOx4 able to express his own concerns. Educated patient on importance of calling for bedpan when needed and using skin berrier cream as needed. Patient verbalized agreement. Will endorse report to night nurse for continuity of care. Patient remained safe and stable throughput shift. Will continue to monitor throughout shift and provide care as needed. All safety precautions taken, call light and table within reach, bed at lowest position.
--- NOTE | 2022-04-27 19:30 | NUR ---
kaley rn opening received patient in bed, a/ox4. no s/s of apparent distress on room air. 2 family members at bedside. denies pain. tele monitor reading st @120bpm. IV access CATA PICC line noted, running ns @75mls/hr. call light within reach, oriented and encouraged with the use of call light. will continue with the plan of care for patient.
[2022-04-27 20:00] VITALS: BP 148/91
[2022-04-27] MEDS: ACYCLOVIR IV 500 MG in IV D5W 100 ML IV SCH (20:59)
[2022-04-27] MEDS ORDERED: ACYCLOVIR IV 500 MG in IV D5W 100 ML IV SCH (21:00)
[2022-04-28] VITALS: BP 153/101
[2022-04-28] MEDS: hydrALAZINE HCL IV 20 MG VIAL IV PRN (01:26)
[2022-04-28 04:00] VITALS: BP 114/85
[2022-04-28 07:06] LABS: CALCIUM, SERUM 9.3 mg/dL (8.5-10.1); CREATININE 1.6 mg/dL (0.6-1.3); POTASSIUM 3.7 mmol/L (3.5-5.1)
--- NOTE | 2022-04-28 07:19 | NUR ---
RN CLOSING NOTE PATIENT IN BED, AWAKE. PATIENT IS A/O X4, ABLE TO MAKE NEEDS KNOWN. PATIENT IS PRIMARILY [place]ICAN SPEAKING BUT PATIENT IS ABLE TO UNDERSTAND AND SPEAK SOME [place]. PATIENT IS ON RA, TOLERATING WELL, NO SOB NOTED OR BREATHING DIFFICULTY. TELE MONITOR READS ST 120 BPM. PATIENT HAS A CATA PICC LINE, WITH NS AT 75 ML/HR ONGOING, INFUSING WELL. PATIENT DOES NOT REPORT ANY PAIN AT THIS TIME. SAFETY MEASURES IN PLACE: BED LOCKED AND IN LOWEST POSITION, CALL LIGHT WITHIN REACH, SIDE RAILS UP. ALL NEEDS MET AND ATTENDED. ALL ORDERS CARRIED OUT. ENDORSED TO DAY SHIFT NURSE FOR JOHN.
--- NOTE | 2022-04-28 07:30 | NUR ---
RN Opening Note Patient AOx4 able to express his concerns. Discussed plan of care, patient verbalized agreement. Patient made aware of the need to be cleared by PT in order to get up and try to use the bathroom, pt verbalized understanding. Patient with no signs of distress or discomfort. Will monitor throughout shift and provide care as needed. All safety precautions taken, call light and table within reach, bed at lowest position.
[2022-04-28 07:43] LABS: BASOPHILS # (AUTO) 0.1 K/uL (0.0-0.2); BASOPHILS % (AUTO) 1.3 % (0.0-2.0); EOSINOPHILS % (AUTO) 1.2 % (0.0-6.0); HEMATOCRIT 36 % (39-51); HEMOGLOBIN 12.2 g/dL (13.5-17.5); LYMPHOCYTES # (AUTO) 1.8 K/uL (0.8-4.8); LYMPHOCYTES % (AUTO) 19.8 % (20.0-44.0); MEAN CORPUSCULAR HGB CONC 34 g/dl (31.0-36.0); MEAN CORPUSCULAR VOLUME 104 fL (80-96); MONOCYTES # (AUTO) 1.1 K/uL (0.1-1.30); MONOCYTES % (AUTO) 12.3 % (2.0-12.0); NEUTROPHILS # (AUTO) 5.8 K/uL (1.8-8.9); NEUTROPHILS % (AUTO) 65.4 % (43.0-81.0); PLATELET COUNT (AUTO) 665 K/uL (150-450); RED BLOOD CELL COUNT(AUTO) 3.46 MIL/uL (4.5-6.0); WHITE BLOOD COUNT (AUTO) 8.9 K/uL (4.3-11.0)
[2022-04-28 08:00] VITALS: BP 154/90
[2022-04-28] MEDS: PANTOPRAZOLE 40 MG TABLET.DR PO SCH (08:39)
[2022-04-28] MEDS: VALSARTAN 80 MG TABLET PO SCH ×2 (08:40→20:38)
[2022-04-28] MEDS: AMLODIPINE BESYLATE 10 MG TABLET PO SCH (08:40)
[2022-04-28] MEDS: ACYCLOVIR IV 500 MG in IV D5W 100 ML IV SCH ×2 (08:41→20:37)
[2022-04-28] MEDS: CLOTRIMAZOLE/BETAMETASONE DIPROPIONATE 15 GM TUBE TP SCH ×2 (09:00→17:55)
[2022-04-28] MEDS: Z GUARD REMEDY 4 OZ OINT TP SCH (10:05)
[2022-04-28] MEDS: ACETAMINOPHEN 325 MG TABLET PO PRN ×2 (13:04→20:39)
[2022-04-28] MEDS ORDERED: VALA10002 PO (15:44)
[2022-04-28] MEDS ORDERED: VALS80TA31 PO (15:45)
[2022-04-28] MEDS ORDERED: AMLO-213 PO (15:45)
[2022-04-28 15:56] VITALS: BP 134/80
[2022-04-28 18:07] LABS: EOSINOPHILS % (MANUAL) 2 % (0-4); LYMPHOCYTES % (MANUAL) 20 % (16-48); MONOCYTES % (MANUAL) 9 % (0-11.0); NEUTROPHILS % (MANUAL) 68 (42-76); REACTIVE LYMPHOCYTES 1 % (0-0)
[2022-04-28] MEDS: IV NS 0.9% 1,000 ML IV PRN (18:19)
[2022-04-28] MEDS: ENOXAPARIN SODIUM 40 MG/0.4 ML DISP.SYRIN SQ SCH (18:40)
--- NOTE | 2022-04-28 19:30 | NUR ---
RN OPENING NOTE PATIENT IN BED, AWAKE. PATIENT IS A/O X 4, ABLE TO MAKE NEEDS KNOWN. PATIENT IS PRIMARILY HEBREW SPEAKING BUT PATIENT IS ABLE TO UNDERSTAND AND SPEAK SOME UKRAINIAN. SON AND DAUGHTER AT BEDSIDE. PATIENT IS ON RA, TOLERATING WELL, NO SOB NOTED OR BREATHING DIFFICULTY. TELE MONITOR READS ST 120 BPM. PATIENT HAS A CATA PICC LINE, WITH NS AT 75 ML/HR ONGOING, INFUSING WELL. PATIENT ALSO HAS A R WRIST 20 G, PATENT AND INTACT. PATIENT DOES NOT REPORT ANY PAIN AT THIS TIME. SAFETY MEASURES IN PLACE: BED LOCKED AND IN LOWEST POSITION, CALL LIGHT WITHIN REACH, SIDE RAILS UP. WILL MONITOR PATIENT CLOSELY.
[2022-04-28 20:00] VITALS: BP 146/86
--- NOTE | 2022-04-28 20:40 | NUR ---
TYLENOL GIVEN FOR PAIN ON THE NECK AND BACK 08/20. WILL REASSESS PAIN AT A LATER TIME.
[2022-04-29] VITALS: BP 145/81
[2022-04-29 04:00] VITALS: BP 141/96
[2022-04-29] MEDS: IV NS 0.9% 1,000 ML IV PRN (06:21)
--- NOTE | 2022-04-29 07:30 | NUR ---
RN CLOSING NOTE PATIENT IN BED, AWAKE. PATIENT IS A/O X 4, ABLE TO MAKE NEEDS KNOWN. PATIENT IS ON RA, TOLERATING WELL, NO SOB NOTED OR BREATHING DIFFICULTY. TELE MONITOR READS ST 120S BPM. PATIENT HAS A CATA PICC LINE, WITH NS AT 75 ML/HR ONGOING, INFUSING WELL. PATIENT ALSO HAS A R WRIST 20 G, PATENT AND INTACT. PATIENT DOES NOT REPORT ANY PAIN AT THIS TIME. SAFETY MEASURES IN PLACE: BED LOCKED AND IN LOWEST POSITION, CALL LIGHT WITHIN REACH, SIDE RAILS UP. ALL NEEDS MET AND ATTENDED. ALL ORDERS CARRIED OUT. ENDORSED TO DAY SHIFT NURSE FOR JOHN.
--- NOTE | 2022-04-29 07:30 | NUR ---
RN Opening Note Patient AOx4 able to express his concerns. Discussed plan of care, patient verbalized agreement. Patient states he would like to work with PT again, will coordinate. Patient with no signs of distress or discomfort. Will monitor throughout shift and provide care as needed. All safety precautions taken, call light and table within reach, bed at lowest position.
[2022-04-29 07:32] LABS: BASOPHILS # (AUTO) 0.2 K/uL (0.0-0.2); BASOPHILS % (AUTO) 1.8 % (0.0-2.0); EOSINOPHILS % (AUTO) 1.4 % (0.0-6.0); HEMATOCRIT 37 % (39-51); HEMOGLOBIN 12.3 g/dL (13.5-17.5); LYMPHOCYTES # (AUTO) 2.4 K/uL (0.8-4.8); LYMPHOCYTES % (AUTO) 27.4 % (20.0-44.0); MEAN CORPUSCULAR HGB CONC 34 g/dl (31.0-36.0); MEAN CORPUSCULAR VOLUME 104 fL (80-96); MONOCYTES # (AUTO) 1.1 K/uL (0.1-1.30); MONOCYTES % (AUTO) 12.3 % (2.0-12.0); NEUTROPHILS % (AUTO) 57.1 % (43.0-81.0); PLATELET COUNT (AUTO) 672 K/uL (150-450); RED BLOOD CELL COUNT(AUTO) 3.54 MIL/uL (4.5-6.0); WHITE BLOOD COUNT (AUTO) 8.7 K/uL (4.3-11.0)
[2022-04-29 08:00] VITALS: BP 157/108
[2022-04-29 08:03] LABS: CALCIUM, SERUM 9.5 mg/dL (8.5-10.1); CREATININE 1.4 mg/dL (0.6-1.3); POTASSIUM 3.6 mmol/L (3.5-5.1)
[2022-04-29] MEDS: ACYCLOVIR IV 500 MG in IV D5W 100 ML IV SCH (09:11)
[2022-04-29] MEDS: PANTOPRAZOLE 40 MG TABLET.DR PO SCH (09:11)
[2022-04-29] MEDS: AMLODIPINE BESYLATE 10 MG TABLET PO SCH (09:12)
[2022-04-29 09:13] VITALS: BP 157/108
[2022-04-29] MEDS: VALSARTAN 80 MG TABLET PO SCH (09:13)
[2022-04-29] MEDS: Z GUARD REMEDY 4 OZ OINT TP SCH (09:14)
[2022-04-29] MEDS: CLOTRIMAZOLE/BETAMETASONE DIPROPIONATE 15 GM TUBE TP SCH ×2 (11:00→16:36)
[2022-04-29] MEDS: ACETAMINOPHEN 325 MG TABLET PO PRN (11:09)
--- NOTE | 2022-04-29 18:20 | NUR ---
biology teacher Note Patient discharged home. All safety precautions taken, picked him up at the main entrance, patient was wheeled out safely. PAtient educated on importance of following up with primary care physician and picking up medications prescribed at preferred pharmacy. Patient verbalized understanding and states he will be able to take care of his well being. No incidents, patient refused updated picture of rash, stating it is better and there is no need.
== END 2022-04-29 18:15 | disposition home or self-care (01) | DRG 720 ==
LOC: ER 19:12 → MED 04-15 00:08 → ICU 04-15 02:31 → TELE 04-18 10:59
PROVIDERS: ADMIT Nurse Practitioner Acute Care; ATTEND Internal Medicine
PROC: 02HV33Z Insertion of Infusion Device into Superior Vena Cava, Percutaneous Approach (ICD-10-PCS; 2022-04-16)
PROC: B548ZZA Ultrasonography of Superior Vena Cava, Guidance (ICD-10-PCS; 2022-04-16)
PROC: 009U3ZX Drainage of Spinal Canal, Percutaneous Approach, Diagnostic (ICD-10-PCS; 2022-04-17)
PROC: B01BYZZ Fluoroscopy of Spinal Cord using Other Contrast (ICD-10-PCS; 2022-04-17)
PROC: 009U3ZX Drainage of Spinal Canal, Percutaneous Approach, Diagnostic (ICD-10-PCS; 2022-04-17)
PROC: B01BYZZ Fluoroscopy of Spinal Cord using Other Contrast (ICD-10-PCS; 2022-04-17)
PROC: 009U3ZX Drainage of Spinal Canal, Percutaneous Approach, Diagnostic (ICD-10-PCS; principal; 2022-04-20)
PROC: B01BYZZ Fluoroscopy of Spinal Cord using Other Contrast (ICD-10-PCS; 2022-04-20)
DX: A41.9 Sepsis, unspecified organism (principal); N17.0 Acute kidney failure with tubular necrosis; G93.41 Metabolic encephalopathy; G04.90 Encephalitis and encephalomyelitis, unspecified; E44.1 Mild protein-calorie malnutrition; E87.20 Acidosis, unspecified; K76.1 Chronic passive congestion of liver; A87.9 Viral meningitis, unspecified; E87.0 Hyperosmolality and hypernatremia; R56.9 Unspecified convulsions; I47.1 Supraventricular tachycardia; E83.39 Other disorders of phosphorus metabolism; Z20.822 Contact with and (suspected) exposure to COVID-19; I10 Essential (primary) hypertension; E87.6 Hypokalemia; E87.1 Hypo-osmolality and hyponatremia; E86.1 Hypovolemia; E88.09 Other disorders of plasma-protein metabolism, not elsewhere classified; R65.20 Severe sepsis without septic shock; B00.2 Herpesviral gingivostomatitis and pharyngotonsillitis; R73.03 Prediabetes
CPT/HCPCS: 36415; 36569; 62270; 70450-TC; 70551-TC; 71045-TC; 80048-TC; 80053-TC; 80061-TC; 80076-TC; 80202-TC; 81001; 82150-TC; 82962-TC; 83605-TC; 83690-TC; 83735-TC; 84100-TC; 84439-TC; 84443-TC; 84481; 84484-TC; 85025-TC; 85610-TC; 85730-TC; 86140-TC; 86480; 86694; 86803; 87040-TC; 87070-TC; 87081-TC; 87086-TC; 87102-TC; 87116; 87206; 87536; 87806; 87899; 89051-TC; 94799-TC; 97112-TC; 97116-TC; 97530-TC; A4216; A9563; C9113; C9803; G0378; J0133; J0290; J0360; J0696; J1650; J2060; J2405; J2543; J3370; J3480; J3490; J7030; J7040; J7050; J7060; J8597